=== PATIENT | male | born 1950 | race American Indian/Alaskan Native ===

== ENCOUNTER 2016-08-19 13:18 | Inpatient (IN) | payer MEDICARE ==
[2016-08-19 15:04] LABS: Basophils % (Auto) 0.5 % (0.0-1.8); Eosinophils % (Auto) 1.5 % (0.0-4.3); Hematocrit 30.4 % (35.5-45.6); Hemoglobin 10.2 gm/dl (11.8-15.2); Mean Corpuscular HGB Conc 34 % (32-34); Mean Corpuscular Hemoglobin 34 pg (28-32); Mean Corpuscular Volume 102 fl (84-94); Platelet Count 142 K/mm3 (140-440); Red Blood Count 2.99 M/mm3 (3.65-5.03); Red Cell Distribution Width 14.7 % (13.2-15.2); White Blood Count 5.4 K/mm3 (4.5-11.0)
[2016-08-19 15:11] LABS: Albumin 3.8 g/dL (3.9-5); Albumin/Globulin Ratio 1.6 %; BUN/Creatinine Ratio 11.42; Bilirubin,Total 0.4 mg/dL (0.1-1.2); Calcium 8.3 mg/dL (8.4-10.2); Magnesium 2.3 mg/dL (1.7-2.3); Total Protein 6.2 g/dL (6.3-8.2)
[2016-08-19 15:14] LABS: INR 0.9 (0.87-1.13); Partial Thromboplastin Time 28.6 Sec. (24.2-36.6)
[2016-08-19 15:15] LABS: Creatine Kinase MB 4.3 ng/mL (0.0-4.0)
[2016-08-19 15:16] LABS: Creatine Kinase 300 units/L (55-170)
[2016-08-19] MEDS ORDERED: NACL 0.9% 1000 ML 1,000 ML IV ONE (16:06)
--- NOTE | 2016-08-19 16:15 | Emergency Department Report ---
ED General Adult HPI - General Chief complaint: Weakness Stated complaint: WEAKNESS Time Seen by Provider: 08/19/16 14:40 Source: patient, EMS Mode of arrival: Stretcher Limitations: Other - History of Present Illness Initial comments: The nurse informed me that this patient arrives substantially lethargic. She entered and altered mental status protocol. At this time my encounter the patient is now awake and alert and can't provide the following history. The patient states that he was at his cousin's house and was sent to the hospital because he began shaking. He states that he was told that he was shaking but he was not conscious at that. He explains that he does have seizures when he cuts back on his alcohol consumption. He states that he recently has cut back. He also states that he had 2 seizures last . He is taking a medication for seizures but does not know the name. However his medical condition reconciliation less Keppra. He does not report any recent head trauma or falls. However, he is found to have an abrasion which does not appear to be fresh on his forehead. The patient does not complain of headache or pain. He denies any recent fever or chills. He denies nausea vomiting diarrhea or vomiting although he states he vomited once last week. He states he does have a nonproductive cough. He does not complain of dyspnea. -: Sudden, minutes(s) Severity scale (0 -10): 0 Improves with: none Worsens with: none Associated Symptoms: denies other symptoms, cough - Related Data Home Medications Medication Instructions Recorded Confirmed Last Taken Amlodipine Besylate [Norvasc] 5 mg PO DAILY 11/02/12 08/19/16 02/27/14 FLUoxetine HCL [PROzac] 60 mg PO QAM 11/02/12 08/19/16 02/27/14 Folic Acid 1 mg PO DAILY 11/02/12 08/19/16 02/27/14 Gabapentin 200 mg PO TID 11/02/12 08/19/16 02/27/14 levETIRAcetam [Keppra TAB] 1,000 mg PO BID 11/02/12 08/19/16 02/27/14 Allopurinol [Zyloprim] 300 mg PO QDAY 02/27/14 08/19/16 02/27/14 Cholecalciferol Vit D3 [Vitamin D3] 1,000 unit PO QDAY 02/27/14 08/19/16 Ipratropium/Albuterol Sulfate 1 ampul IH Q6HRT PRN 02/27/14 08/19/16 Unknown [Duoneb 0.5 mg-3 mg/3 ml Soln] Mirtazapine [Remeron] 15 mg PO DAILY 02/27/14 08/19/16 02/27/14 Thiamine HCl [B-1] 200 mg PO DAILY 02/27/14 08/19/16 02/27/14 Previous Rx's Medication Instructions Recorded Last Taken Type Atenolol [Tenormin] 50 mg PO DAILY #30 tablet 07/31/14 Unknown Rx Capsaicin 0.075% [Zostrix Hp 1 applicatio TP TID #1 tube 07/31/14 Unknown Rx 0.075%] Lipase/Protease/Amylase 1 each PO TID #90 capsule. 07/31/14 Unknown Rx [Pancrelipase 5,000 Unit Cap] Omeprazole [PriLOSEC] 40 mg PO DAILY #30 capsule. 07/31/14 Unknown Rx Nicotine [Habitrol] 14 mg TD DAILY #14 patch 08/24/15 Unknown Rx Ondansetron [Zofran Odt] 4 mg PO Q4H PRN #15 tab.rapdis 08/24/15 Unknown Rx oxyCODONE /ACETAMINOPHEN [Percocet 1 tab PO Q6H PRN #30 tablet 08/24/15 Unknown Rx 5/325 mg] Allergies Allergy/AdvReac Type Severity Reaction Status Date / Time shellfish derived Allergy Swelling Verified 08/21/15 22:08 lobster Allergy lips swell Uncoded 08/21/13 14:24 ED Review of Systems ROS: Stated complaint: WEAKNESS Other details as noted in HPI Constitutional: denies: chills, fever Eyes: denies: eye pain, eye discharge, vision change ENT: denies: ear pain, throat pain Respiratory: denies: cough, shortness of breath, wheezing Cardiovascular: denies: chest pain, palpitations Endocrine: no symptoms reported Gastrointestinal: denies: abdominal pain, nausea, diarrhea Genitourinary: denies: urgency, dysuria Musculoskeletal: denies: back pain, joint swelling, arthralgia Skin: denies: rash, lesions Neurological: as per HPI. denies: headache, weakness, paresthesias Psychiatric: denies: anxiety, depression Hematological/Lymphatic: denies: easy bleeding, easy bruising ED Past Medical Hx - Past Medical History Previous Medical History?: Yes Hx Hypertension: Yes Hx Congestive Heart Failure: No Hx Diabetes: No Hx Arthritis: Yes Hx Seizures: Yes Hx Asthma: No Hx COPD: Yes Additional medical history: gout. pancreatitis. DDD - Surgical History Past Surgical History?: Yes Additional Surgical History: Pancreatitis. Acute renal failure. - Social History Smoking Status: Current Every Day Smoker Substance Use Type: Prescribed - Medications Home Medications: Home Medications Medication Instructions Recorded Confirmed Last Taken Type Amlodipine Besylate [Norvasc] 5 mg PO DAILY 11/02/12 08/19/16 02/27/14 History FLUoxetine HCL [PROzac] 60 mg PO QAM 11/02/12 08/19/16 02/27/14 History Folic Acid 1 mg PO DAILY 11/02/12 08/19/16 02/27/14 History Gabapentin 200 mg PO TID 11/02/12 08/19/16 02/27/14 History levETIRAcetam [Keppra TAB] 1,000 mg PO BID 11/02/12 08/19/16 02/27/14 History Allopurinol [Zyloprim] 300 mg PO QDAY 02/27/14 08/19/16 02/27/14 History Cholecalciferol Vit D3 [Vitamin D3] 1,000 unit PO QDAY 02/27/14 08/19/16 History Ipratropium/Albuterol Sulfate 1 ampul IH Q6HRT PRN 02/27/14 08/19/16 Unknown History [Duoneb 0.5 mg-3 mg/3 ml Soln] Mirtazapine [Remeron] 15 mg PO DAILY 02/27/14 08/19/16 02/27/14 History Thiamine HCl [B-1] 200 mg PO DAILY 02/27/14 08/19/16 02/27/14 History Atenolol [Tenormin] 50 mg PO DAILY #30 tablet 07/31/14 08/19/16 Unknown Rx Capsaicin 0.075% [Zostrix Hp 1 applicatio TP TID #1 tube 07/31/14 08/19/16 Unknown Rx 0.075%] Lipase/Protease/Amylase 1 each PO TID #90 capsule. 07/31/14 08/19/16 Unknown Rx [Pancrelipase 5,000 Unit Cap] Omeprazole [PriLOSEC] 40 mg PO DAILY #30 capsule. 07/31/14 08/19/16 Unknown Rx Nicotine [Habitrol] 14 mg TD DAILY #14 patch 08/24/15 08/19/16 Unknown Rx Ondansetron [Zofran Odt] 4 mg PO Q4H PRN #15 tab.rapdis 08/24/15 08/19/16 Unknown Rx oxyCODONE /ACETAMINOPHEN [Percocet 1 tab PO Q6H PRN #30 tablet 08/24/15 Unknown Rx 5/325 mg] ED Physical Exam - General Limitations: No Limitations General appearance: alert, in no apparent distress - Head Head exam: Present: atraumatic, normocephalic - Eye Eye exam: Present: normal appearance, PERRL, EOMI. Absent: scleral icterus - ENT ENT exam: Present: normal exam, mucous membranes moist - Neck Neck exam: Present: normal inspection - Respiratory Respiratory exam: Present: rhonchi. Absent: respiratory distress - Cardiovascular Cardiovascular Exam: Present: regular rate, normal rhythm. Absent: systolic murmur, diastolic murmur, rubs, gallop - GI/Abdominal GI/Abdominal exam: Present: soft, normal bowel sounds. Absent: distended, tenderness, guarding, rebound, rigid - Rectal Rectal exam: Present: deferred - Extremities Exam Extremities exam: Present: normal inspection - Back Exam Back exam: Present: normal inspection - Neurological Exam Neurological exam: Present: alert, oriented X3, CN II-XII intact. Absent: motor sensory deficit - Psychiatric Psychiatric exam: Present: normal affect, normal mood - Skin Skin exam: Present: warm, dry, intact, normal color. Absent: rash ED Course Vital Signs 08/19/16 08/19/16 14:14 15:56 Temperature 97.7 F Pulse Rate 60 62 Respiratory 12 16 Rate Blood Pressure 109/58 Blood Pressure 101/56 [Right] O2 Sat by Pulse 99 98 Oximetry - Reevaluation(s) Reevaluation #1: The patient is hyponatremic. He has a history of previous renal failure. However one year ago his creatinine was normal. Today it is 2.2. His BUN to creatinine ratio is somewhat low. He was given a bolus of normal saline. He was given a gram of Keppra. He will have a CT of his head to exclude any occult injury. He is admitted by Dr. De La Fuente of the hospitalist service for his hyponatremia, recurrent seizures and renal failure of uncertain duration. 08/19/16 17:29 ED Medical Decision Making - Lab Data Result diagrams: 08/19/16 14:31 08/19/16 14:31 Laboratory Results - last 24 hr 08/19/16 08/19/16 08/19/16 14:31 14:31 14:31 WBC 5.4 RBC 2.99 L Hgb 10.2 L Hct 30.4 L MCV 102 H MCH 34 H MCHC 34 RDW 14.7 Plt Count 142 Lymph % (Auto) 37.8 H [place] % (Auto) 11.4 H Eos % (Auto) 1.5 Baso % (Auto) 0.5 Lymph # 2.0 Freestone # 0.6 Eos # 0.1 Baso # 0.0 Seg Neutrophils % 48.8 Seg Neutrophils # 2.6 PT INR APTT Sodium 127 L Potassium 4.0 Chloride 89.0 L Carbon Dioxide 22 Anion Gap 20 BUN 32 H Creatinine 2.8 H Estimated GFR 27 BUN/Creatinine Ratio 11.42 Glucose 93 Lactic Acid 1.20 Calcium 8.3 L Magnesium 2.30 Total Bilirubin 0.40 AST 20 ALT 14 Alkaline Phosphatase 88 Total Creatine Kinase CK-MB (CK-2) CK-MB (CK-2) Rel Index Troponin T NT-Pro-B Natriuret Pep Total Protein 6.2 L Albumin 3.8 L Albumin/Globulin Ratio 1.6 TSH Urine Color Urine Turbidity Urine pH Ur Specific [place] Urine Protein Urine Glucose (UA) Urine Ketones Urine Blood Urine Nitrite Urine Bilirubin Urine Urobilinogen Ur Leukocyte Esterase Urine WBC (Auto) Urine RBC (Auto) Urine Bacteria (Auto) Salicylates Urine Opiates Screen Urine Methadone Screen Acetaminophen Ur Barbiturates Screen Ur Phencyclidine Scrn Ur Amphetamines Screen U Benzodiazepines Scrn Urine Cocaine Screen Plasma/Serum Alcohol 08/19/16 08/19/16 08/19/16 14:31 14:31 14:31 WBC RBC Hgb Hct MCV MCH MCHC RDW Plt Count Lymph % (Auto) Freestone % (Auto) Eos % (Auto) Baso % (Auto) Lymph # Fre[place] # Eos # Baso # Seg Neutrophils % Seg Neutrophils # PT INR APTT Sodium Potassium Chloride Carbon Dioxide Anion Gap BUN Creatinine Estimated GFR BUN/Creatinine Ratio Glucose Lactic Acid Calcium Magnesium Total Bilirubin AST ALT Alkaline Phosphatase Total Creatine Kinase CK-MB (CK-2) CK-MB (CK-2) Rel Index Troponin T NT-Pro-B Natriuret Pep Total Protein Albumin Albumin/Globulin Ratio TSH 0.626 Urine Color Urine Turbidity Urine pH Ur Specific [place] Urine Protein Urine Glucose (UA) Urine Ketones Urine Blood Urine Nitrite Urine Bilirubin Urine Urobilinogen Ur Leukocyte Esterase Urine WBC (Auto) Urine RBC (Auto) Urine Bacteria (Auto) Salicylates < 0.3 L Urine Opiates Screen Urine Methadone Screen Acetaminophen < 15.0 Ur Barbiturates Screen Ur Phencyclidine Scrn Ur Amphetamines Screen U Benzodiazepines Scrn Urine Cocaine Screen Plasma/Serum Alcohol 08/19/16 08/19/16 08/19/16 14:31 14:31 14:52 WBC RBC Hgb Hct MCV MCH MCHC RDW Plt Count Lymph % (Auto) [place] % (Auto) Eos % (Auto) Baso % (Auto) Lymph # [place] # Eos # Baso # Seg Neutrophils % Seg Neutrophils # PT 12.6 INR 0.90 APTT 28.6 Sodium Potassium Chloride Carbon Dioxide Anion Gap BUN Creatinine Estimated GFR BUN/Creatinine Ratio Glucose Lactic Acid Calcium Magnesium Total Bilirubin AST ALT Alkaline Phosphatase Total Creatine Kinase 300 H CK-MB (CK-2) 4.3 H CK-MB (CK-2) Rel Index 1.4 Troponin T < 0.010 NT-Pro-B Natriuret Pep 89.14 Total Protein Albumin Albumin/Globulin Ratio TSH Urine Color Urine Turbidity Urine pH Ur Specific [place] Urine Protein Urine Glucose (UA) Urine Ketones Urine Blood Urine Nitrite Urine Bilirubin Urine Urobilinogen Ur Leukocyte Esterase Urine WBC (Auto) Urine RBC (Auto) Urine Bacteria (Auto) Salicylates Urine Opiates Screen Urine Methadone Screen Acetaminophen Ur Barbiturates Screen Ur Phencyclidine Scrn Ur Amphetamines Screen U Benzodiazepines Scrn Urine Cocaine Screen Plasma/Serum Alcohol < 0.01 08/19/16 08/19/16 Unknown Unknown WBC RBC Hgb Hct MCV MCH MCHC RDW Plt Count Lymph % (Auto) [place] % (Auto) Eos % (Auto) Baso % (Auto) Lymph # [place] # Eos # Baso # Seg Neutrophils % Seg Neutrophils # PT INR APTT Sodium Potassium Chloride Carbon Dioxide Anion Gap BUN Creatinine Estimated GFR BUN/Creatinine Ratio Glucose Lactic Acid Calcium Magnesium Total Bilirubin AST ALT Alkaline Phosphatase Total Creatine Kinase CK-MB (CK-2) CK-MB (CK-2) Rel Index Troponin T NT-Pro-B Natriuret Pep Total Protein Albumin Albumin/Globulin Ratio TSH Urine Color Red Urine Turbidity Clear Urine pH 5.0 Ur Specific [place] 1.006 Urine Protein 30 mg/dl Urine Glucose (UA) Neg Urine Ketones Neg Urine Blood Lg Urine Nitrite Neg Urine Bilirubin Neg Urine Urobilinogen < 2.0 Ur Leukocyte Esterase Neg Urine WBC (Auto) 2.0 Urine RBC (Auto) > 182.0 Urine Bacteria (Auto) 3+ Salicylates Urine Opiates Screen Presumptive negative Urine Methadone Screen Presumptive negative Acetaminophen Ur Barbiturates Screen Presumptive negative Ur Phencyclidine Scrn Presumptive negative Ur Amphetamines Screen Presumptive negative U Benzodiazepines Scrn Presumptive negative Urine Cocaine Screen Presumptive negative Plasma/Serum Alcohol - EKG Data -: EKG Interpreted by Me EKG shows normal: sinus rhythm, axis, intervals, QRS complexes, ST-T waves Rate: tachycardia - EKG Data Interpretation: no acute changes - Radiology Data interpreted by me: Chest x-ray no acute process Critical care attestation.: If time is entered above; I have spent that time in minutes in the direct care of this critically ill patient, excluding procedure time. ED Disposition Clinical Impression: Recurrent seizures, Seizure disorder, Renal insufficiency, Hyponatremia Disposition: OP ADMIT IP TO THIS HOSP Is pt being admited?: Yes Does the pt Need Aspirin: Yes Condition: Stable Referrals: PRIMARY CARE, [Primary Care Provider] - 3-5 Days Time of Disposition: 17:32
--- NOTE | 2016-08-19 16:37 | XRay Report ---
CHEST ONE VIEW INDICATION: Saturation level dipping down. COMPARISON: 01/11/2016. FINDINGS: Portable, single, frontal chest radiograph demonstrates normal cardiomediastinal silhouette. Clear lungs. Mild aortic knob calcifications. Multilevel thoracic spondylosis. Extrinsic EKG leads. CONCLUSION: No acute disease in the chest. Thank you for the opportunity to participate in this patient's care.
--- NOTE | 2016-08-19 16:42 | Admit Criteria Form ---
Admission Criteria Documentation: SEIZURE Clinical Indications for Admission to Inpatient Care (Place 'X' for any and all applicable criteria): Admission is indicated for seizure and ANY ONE of the following(1)(2)(3)(4)(5): [X ]I. Inpatient admission required rather than observation care (Also use Seizure: Observation Care Criteria as appropriate) because of ANY ONE of the following: [ ]a) Altered mental status that is severe or persistent [ ]b) New focal neurologic deficit that is severe or persistent [ X]c) Metabolic disorder (eg, hypoglycemia, hyponatremia) that is severe or persistent [X ]d) Recurrent seizure [ ]e) Outpatient antiseizure regimen cannot be established (eg , patient cannot tolerate medication, initiation requires inpatient care) [ ]f) Need for ongoing intravenous infusion of antiseizure medication [ ]g) Cardiac arrhythmias of immediate concern [ ]h) Cerebral bleeding, hydrocephalus, or vasospasm monitoring (14) [ ]i) Increased intracranial pressure or cerebral edema monitoring (15) [ ]j) Other treatment or monitoring requiring inpatient admission [ ]II. Status epilepticus [A] or repetitive seizures not controlled with emergent treatment (6)(8) [ ]III. Brain disorder (eg, tumor, edema, and hydrocephalus) that requiring monitoring or intervention available only at inpatient level of care. [ ]IV. Brain insult (eg, severe trauma, stroke, drug toxicity, or withdrawal) that requires monitoring or intervention available only at inpatient level of care (10)(11) Extended stay beyond goal length of stay may be needed for (22) [ ]a) Complications of status epilepticus [ ]b) Refractory status epilepticus [ ]c) Etiology-specific therapy for conditions such as [employer] infection, head injury,eclampsia, severe metabolic abnormalities, and brain tumor [ ]d) Residual neurologic damage, [ ]e) Initiation of significant change to anticonvulsant treatment [ ]f) Older patients (65 years or older) [ ]g) Patient requiring intubation (eg, to protect airway) The original [facility] [employer] content created by [facility] [employer] has been revised. The portions of the content which have been revised are identified through the use of italic text or in bold, and [facility] [employer] has neither reviewed nor approved the modified material. All other unmodified content is copyright [facility] [employer] Erwin. Please see references footnoted in the original [facility] edition 2016 Admission Criteria Met: Yes
[2016-08-19 17:01] LABS: Urine Drugs of Abuse Note Disclamer
[2016-08-19] MEDS ORDERED: KEPPRA 1,000 MG/NS 0.75% 100ML 1,000 MG/100 ML BAG IV ONE (17:01)
[2016-08-19] MEDS ORDERED: ATIVAN PO ONE (17:01)
[2016-08-19 17:16] LABS: Bacteria,Urine 3+ /HPF (Negative); Bilirubin,Urine NEG (Negative); Blood,Urine LG (Negative); Ketones,Urine NEG (Negative); Leukocyte Esterase,Urine NEG (Negative); Nitrite,Urine NEG (Negative); Urobilinogen,Urine < 2.0 mg/dL (<2.0)
[2016-08-19 17:18] LABS: RBC,Urine > 182.0 /HPF (0.0-6.0)
[2016-08-19] MEDS ORDERED: BABY ASPIRIN PO ONE (17:32)
--- NOTE | 2016-08-19 17:45 | Cat Scan Report ---
FINAL REPORT EXAM: CT HEAD/BRAIN WO CON HISTORY: recurrent sz TECHNIQUE: CT head without contrast PRIORS: None. FINDINGS: No acute intra-axial or extra-axial hemorrhage is identified. There is no evidence of midline shift or mass effect. The ventricles and sulci are within normal limits. Andres-white matter differentiation is intact. No acute parenchymal abnormalities seen. Bony calvarium is grossly intact. Visualized portions of the mastoids and paranasal sinuses are unremarkable. IMPRESSION: Negative CT head
--- NOTE | 2016-08-19 18:10 | History and Physical Report ---
History of Present Illness Chief complaint: Confused, Had a seizure History of present illness: 66 YO Male with HTN, COPD, OA, Seizure Disorder, Pancreatitis, ETOH Dependence, Nicotine Dependence presents to ED for evaluation. Pt states that he had a witnessed seizure at his cousins house today and was sent to the hospital after his seizure. PT states that he does have seizures when he cuts back on his alcohol consumption. He states that he recently has cut back. He also states that he had 2 seizures last week. He is taking a medication for seizures but does not know the name. Patient denies NVD, headache or pain, fever, or chills. He denies nausea vomiting diarrhea or vomiting although he states he vomited once last week. He states he does have a nonproductive cough. He does not complain of dyspnea. Past History Past Medical History: arthritis, COPD, hypertension, seizures Past Surgical History: No surgical history, Other (reviewed) Social history: , smoking, alcohol abuse. denies: prescription drug abuse, IV drug use Family history: hypertension Medications and Allergies Allergies Allergy/AdvReac Type Severity Reaction Status Date / Time shellfish derived Allergy Swelling Verified 08/21/15 22:08 lobster Allergy lips swell Uncoded 08/21/13 14:24 Home Medications Medication Instructions Recorded Confirmed Last Taken Type Amlodipine Besylate [Norvasc] 5 mg PO DAILY 11/02/12 08/19/16 02/27/14 History FLUoxetine HCL [PROzac] 60 mg PO QAM 11/02/12 08/19/16 02/27/14 History Folic Acid 1 mg PO DAILY 11/02/12 08/19/16 02/27/14 History Gabapentin 200 mg PO TID 11/02/12 08/19/16 02/27/14 History levETIRAcetam [Keppra TAB] 1,000 mg PO BID 11/02/12 08/19/16 02/27/14 History Allopurinol [Zyloprim] 300 mg PO QDAY 02/27/14 08/19/16 02/27/14 History Cholecalciferol Vit D3 [Vitamin D3] 1,000 unit PO QDAY 02/27/14 08/19/16 History Ipratropium/Albuterol Sulfate 1 ampul IH Q6HRT PRN 02/27/14 08/19/16 Unknown History [Duoneb 0.5 mg-3 mg/3 ml Soln] Mirtazapine [Remeron] 15 mg PO DAILY 02/27/14 08/19/16 02/27/14 History Thiamine HCl [B-1] 200 mg PO DAILY 02/27/14 08/19/16 02/27/14 History Atenolol [Tenormin] 50 mg PO DAILY #30 tablet 07/31/14 08/19/16 Unknown Rx Capsaicin 0.075% [Zostrix Hp 1 applicatio TP TID #1 tube 07/31/14 08/19/16 Unknown Rx 0.075%] Lipase/Protease/Amylase 1 each PO TID #90 capsule. 07/31/14 08/19/16 Unknown Rx [Pancrelipase 5,000 Unit Cap] Omeprazole [PriLOSEC] 40 mg PO DAILY #30 capsule. 07/31/14 08/19/16 Unknown Rx Nicotine [Habitrol] 14 mg TD DAILY #14 patch 08/24/15 08/19/16 Unknown Rx Ondansetron [Zofran Odt] 4 mg PO Q4H PRN #15 tab.rapdis 08/24/15 08/19/16 Unknown Rx oxyCODONE /ACETAMINOPHEN [Percocet 1 tab PO Q6H PRN #30 tablet 08/24/15 Unknown Rx 5/325 mg] Review of Systems All systems: negative Constitutional: other (seizure) Exam - Constitutional Vitals: Temp Pulse Resp BP Pulse Ox 97.7 F 62 16 101/56 98 08/19/16 14:14 08/19/16 15:56 08/19/16 15:56 08/19/16 15:56 08/19/16 15:56 General appearance: Present: mild distress - EENT Eyes: Present: PERRL ENT: hearing intact, clear oral mucosa - Neck Neck: Present: supple, normal ROM - Respiratory Respiratory effort: normal Respiratory: bilateral: diminished - Cardiovascular Heart Sounds: Present: S1 & S2. Absent: rub, click - Extremities Extremities: pulses symmetrical, No edema Peripheral Pulses: within normal limits - Abdominal General gastrointestinal: Present: soft, non-tender, non-distended, normal bowel sounds Male genitourinary: Present: normal - Integumentary Integumentary: Present: clear, dry, clammy, decreased turgor - Musculoskeletal Musculoskeletal: generalized weakness - Psychiatric Psychiatric: appropriate mood/affect, no intact judgment & insight, no memory intact - Neurologic Neurologic: CNII-XII intact, moves all extremities, no gait normal Results - Labs CBC & Chem 7: 08/19/16 14:31 08/19/16 14:31 Labs: Abnormal lab results 08/19/16 08/19/16 08/19/16 Range/Units 14:31 14:31 14:31 RBC 2.99 L (3.65-5.03) M/mm3 Hgb 10.2 L (11.8-15.2) gm/dl Hct 30.4 L (35.5-45.6) % MCV 102 H (84-94) fl MCH 34 H (28-32) pg Lymph % (Auto) 37.8 H (13.4-35.0) % Centre % (Auto) 11.4 H (0.0-7.3) % Sodium 127 L (137-145) mmol/L Chloride 89.0 L (98-107) mmol/L BUN 32 H (9-20) mg/dL Creatinine 2.8 H (0.8-1.5) mg/dL Calcium 8.3 L (8.4-10.2) mg/dL Total Creatine Kinase (55-170) units/L CK-MB (CK-2) (0.0-4.0) ng/mL Total Protein 6.2 L (6.3-8.2) g/dL Albumin 3.8 L (3.9-5) g/dL Salicylates < 0.3 L (2.8-20.0) mg/dL 08/19/16 Range/Units 14:31 RBC (3.65-5.03) M/mm3 Hgb (11.8-15.2) gm/dl Hct (35.5-45.6) % MCV (84-94) fl MCH (28-32) pg Lymph % (Auto) (13.4-35.0) % Centre % (Auto) (0.0-7.3) % Sodium (137-145) mmol/L Chloride (98-107) mmol/L BUN (9-20) mg/dL Creatinine (0.8-1.5) mg/dL Calcium (8.4-10.2) mg/dL Total Creatine Kinase 300 H (55-170) units/L CK-MB (CK-2) 4.3 H (0.0-4.0) ng/mL Total Protein (6.3-8.2) g/dL Albumin (3.9-5) g/dL Salicylates (2.8-20.0) mg/dL Assessment and Plan - Patient Problems (1) Alcohol withdrawal Current Visit: Yes Status: Acute Qualifiers: Complication of substance-induced condition: C Plan to address problem: CIWA protocol, Thiamine, folic acid, multivitamin daily (2) Encephalopathy acute Current Visit: Yes Status: Acute Plan to address problem: Supportive care, IVF replacement, treat ETOH withdrawl (3) Seizure disorder Current Visit: Yes Status: Acute Plan to address problem: Keppra loading in ED, Keppra bid (4) Hyponatremia syndrome Current Visit: Yes Status: Acute Plan to address problem: IVR replacement, repeat bmp (5) ARF (acute renal failure) Current Visit: Yes Status: Acute Qualifiers: Acute renal failure type: A Plan to address problem: IVF< monitor uop q shift, supportive care. (6) DVT prophylaxis Current Visit: Yes Status: Acute
[2016-08-19] MEDS ORDERED: TYLENOL PO PRN (18:14)
[2016-08-19] MEDS ORDERED: DUONEB *Not for PRN Use IH ×2 (18:14→18:18)
[2016-08-19] MEDS ORDERED: DULCOLAX PR PRN (18:14)
[2016-08-19] MEDS ORDERED: MILK OF MAGNESIA PO PRN (18:14)
[2016-08-19] MEDS ORDERED: ZOFRAN IV PRN (18:14)
[2016-08-19] MEDS ORDERED: ATIVAN IV PRN (18:20)
[2016-08-19] MEDS ORDERED: PROVENTIL IH PRN (18:26)
[2016-08-19] MEDS: ZOSTRIX HP TP SCH (23:00)
[2016-08-19] MEDS: NEURONTIN PO SCH (23:08)
[2016-08-19] MEDS: KEPPRA PO SCH (23:08)
[2016-08-20] MEDS: THERAGRAN Tab PO SCH ×2 (01:00→09:35)
[2016-08-20] MEDS: VITAMIN B-1 PO SCH ×2 (01:00→09:33)
[2016-08-20] MEDS: ZOSTRIX HP TP SCH ×3 (08:00→21:29)
[2016-08-20 09:32] LABS: Anion Gap 18 mmol/L; BUN/Creatinine Ratio 18.18; Blood Urea Nitrogen 20 mg/dL (9-20); Calcium 8.8 mg/dL (8.4-10.2); Carbon Dioxide 22 mmol/L (22-30); Chloride 102.5 mmol/L (98-107); Glucose 90 mg/dL (75-100); Potassium 4.8 mmol/L (3.6-5.0); Sodium 138 mmol/L (137-145)
[2016-08-20] MEDS: VITAMIN D3 PO SCH (09:33)
[2016-08-20] MEDS: ZYLOPRIM PO SCH (09:34)
[2016-08-20] MEDS: FOLVITE PO SCH (09:34)
[2016-08-20] MEDS: NEURONTIN PO SCH ×3 (09:34→21:23)
[2016-08-20] MEDS: KEPPRA PO SCH ×2 (09:34→21:23)
[2016-08-20] MEDS: TENORMIN PO SCH (09:34)
[2016-08-20] MEDS: NORVASC PO SCH (09:35)
[2016-08-20] MEDS: PROzac PO SCH (09:35)
[2016-08-20] MEDS ORDERED: NON-FORMULARY (Folic Acid [Folic Acid] 1 MG) PO SCH (10:00)
[2016-08-20] MEDS ORDERED: FLUOXETINE HCL 60 MG PO SCH (10:00)
[2016-08-20] MEDS ORDERED: NON-FORMULARY (Amlodipine Besylate [Norvasc] 5 MG) PO SCH (10:00)
--- NOTE | 2016-08-20 12:34 | Progress Note ---
Assessment and Plan Assessment and plan: --seizures/possible alcohol withdrawal Seizure precautions, continue antiepileptic medications, or difficulty --Metabolic encephalopathy Secondary to alcohol use/withdrawal symptoms/deficiencies --Hyponatremia Significant improvement on replacement therapy, closely monitor --Acute renal failure; secondary to vasomotor nephropathy/prerenal azotemia Closely monitor renal function, avoid nephrotoxic medications --DVT prophylaxis; with Lovenox --Chronic alcohol use; counseling done patient strongly advised to quit alcohol intake --Alcohol withdrawal symptoms; initiate CIWA protocol DC planning to case management We'll closely monitor the patient and adjust management as needed History Interval history: Seen and evaluated medical records reviewed Patient feels Slightly better No new Episodes of seizure, alert awake oriented 3 not in acute distress Vital signs reviewed Hospitalist Physical - Constitutional Vitals: Temp Pulse Resp BP Pulse Ox 97.5 F L 68 20 116/70 98 08/20/16 11:22 08/20/16 11:22 08/20/16 11:22 08/20/16 11:22 08/20/16 08:18 General appearance: Present: no acute distress, well-nourished - EENT Eyes: Present: PERRL, EOM intact - Neck Neck: Present: supple, normal ROM - Respiratory Respiratory effort: normal Respiratory: bilateral: diminished, negative: rales, rhonchi, wheezing - Cardiovascular Rhythm: regular Heart Sounds: Present: S1 & S2 - Extremities Extremities: no ischemia, pulses intact Peripheral Pulses: within normal limits - Abdominal General gastrointestinal: soft, non-tender, non-distended, normal bowel sounds - Integumentary Integumentary: Present: clear, warm - Psychiatric Psychiatric: appropriate mood/affect, cooperative - Neurologic Neurologic: CNII-XII intact, moves all extremities Results - Labs CBC & Chem 7: 08/19/16 14:31 08/20/16 08:45 Labs: Laboratory Last Values WBC 5.4 K/mm3 (4.5-11.0) 08/19/16 14:31 RBC 2.99 M/mm3 (3.65-5.03) L 08/19/16 14:31 Hgb 10.2 gm/dl (11.8-15.2) L 08/19/16 14:31 Hct 30.4 % (35.5-45.6) L 08/19/16 14:31 MCV 102 fl (84-94) H 08/19/16 14:31 MCH 34 pg (28-32) H 08/19/16 14:31 MCHC 34 % (32-34) 08/19/16 14:31 RDW 14.7 % (13.2-15.2) 08/19/16 14:31 Plt Count 142 K/mm3 (140-440) 08/19/16 14:31 Lymph % (Auto) 37.8 % (13.4-35.0) H 08/19/16 14:31 [place] % (Auto) 11.4 % (0.0-7.3) H 08/19/16 14:31 Eos % (Auto) 1.5 % (0.0-4.3) 08/19/16 14:31 Baso % (Auto) 0.5 % (0.0-1.8) 08/19/16 14:31 Lymph # 2.0 K/mm3 (1.2-5.4) 08/19/16 14:31 [place] # 0.6 K/mm3 (0.0-0.8) 08/19/16 14:31 Eos # 0.1 K/mm3 (0.0-0.4) 08/19/16 14:31 Baso # 0.0 K/mm3 (0.0-0.1) 08/19/16 14:31 Seg Neutrophils % 48.8 % (40.0-70.0) 08/19/16 14:31 Seg Neutrophils # 2.6 K/mm3 (1.8-7.7) 08/19/16 14:31 PT 12.6 Sec. (12.2-14.9) 08/19/16 14:52 INR 0.90 (0.87-1.13) 08/19/16 14:52 APTT 28.6 Sec. (24.2-36.6) 08/19/16 14:52 Sodium 138 mmol/L (137-145) D 08/20/16 08:45 Potassium 4.8 mmol/L (3.6-5.0) 08/20/16 08:45 Chloride 102.5 mmol/L (98-107) 08/20/16 08:45 Carbon Dioxide 22 mmol/L (22-30) 08/20/16 08:45 Anion Gap 18 mmol/L 08/20/16 08:45 BUN 20 mg/dL (9-20) 08/20/16 08:45 Creatinine 1.1 mg/dL (0.8-1.5) D 08/20/16 08:45 Estimated GFR > 60 ml/min 08/20/16 08:45 BUN/Creatinine Ratio 18.18 % 08/20/16 08:45 Glucose 90 mg/dL (75-100) 08/20/16 08:45 Lactic Acid 0.90 mmol/L (0.7-2.0) 08/19/16 17:32 Calcium 8.8 mg/dL (8.4-10.2) 08/20/16 08:45 Magnesium 2.40 mg/dL (1.7-2.3) H 08/20/16 08:45 Total Bilirubin 0.40 mg/dL (0.1-1.2) 08/19/16 14:31 AST 20 units/L (5-40) 08/19/16 14:31 ALT 14 units/L (7-56) 08/19/16 14:31 Alkaline Phosphatase 88 units/L (35-129) 08/19/16 14:31 Total Creatine Kinase 300 units/L (55-170) H 08/19/16 14:31 CK-MB (CK-2) 4.3 ng/mL (0.0-4.0) H 08/19/16 14:31 CK-MB (CK-2) Rel Index 1.4 (0-4) 08/19/16 14:31 Troponin T < 0.010 ng/mL (0.00-0.029) 08/19/16 14:31 NT-Pro-B Natriuret Pep 89.14 pg/mL (0-900) 08/19/16 14:31 Total Protein 6.2 g/dL (6.3-8.2) L 08/19/16 14:31 Albumin 3.8 g/dL (3.9-5) L 08/19/16 14:31 Albumin/Globulin Ratio 1.6 % 08/19/16 14:31 TSH 0.626 mlU/mL (0.270-4.200) 08/19/16 14:31 Urine Color Red (Yellow) 08/19/16 Unknown Urine Turbidity Clear (Clear) 08/19/16 Unknown Urine pH 5.0 (5.0-7.0) 08/19/16 Unknown Ur Specific [place] 1.006 (1.003-1.030) 08/19/16 Unknown Urine Protein 30 mg/dl mg/dL (Negative) 08/19/16 Unknown Urine Glucose (UA) Neg mg/dL (Negative) 08/19/16 Unknown Urine Ketones Neg mg/dL (Negative) 08/19/16 Unknown Urine Blood Lg (Negative) 08/19/16 Unknown Urine Nitrite Neg (Negative) 08/19/16 Unknown Urine Bilirubin Neg (Negative) 08/19/16 Unknown Urine Urobilinogen < 2.0 mg/dL (<2.0) 08/19/16 Unknown Ur Leukocyte Esterase Neg (Negative) 08/19/16 Unknown Urine WBC (Auto) 2.0 /HPF (0.0-6.0) 08/19/16 Unknown Urine RBC (Auto) > 182.0 /HPF (0.0-6.0) 08/19/16 Unknown Urine Bacteria (Auto) 3+ /HPF (Negative) 08/19/16 Unknown Salicylates < 0.3 mg/dL (2.8-20.0) L 08/19/16 14:31 Urine Opiates Screen Presumptive negative 08/19/16 Unknown Urine Methadone Screen Presumptive negative 08/19/16 Unknown Acetaminophen < 15.0 ug/mL (10.0-30.0) 08/19/16 14:31 Ur Barbiturates Screen Presumptive negative 08/19/16 Unknown Ur Phencyclidine Scrn Presumptive negative 08/19/16 Unknown Ur Amphetamines Screen Presumptive negative 08/19/16 Unknown U Benzodiazepines Scrn Presumptive negative 08/19/16 Unknown Urine Cocaine Screen Presumptive negative 08/19/16 Unknown U Marijuana (THC) Screen Presumptive positive 08/19/16 Unknown Drugs of Abuse Note Disclamer 08/19/16 Unknown Plasma/Serum Alcohol < 0.01 gm% (0-0.07) 08/19/16 14:31
[2016-08-21 07:23] LABS: Anion Gap 15 mmol/L; BUN/Creatinine Ratio 18.88; Blood Urea Nitrogen 17 mg/dL (9-20); Calcium 8.9 mg/dL (8.4-10.2); Carbon Dioxide 28 mmol/L (22-30); Chloride 102.4 mmol/L (98-107); Glucose 111 mg/dL (75-100); Potassium 4.9 mmol/L (3.6-5.0); Sodium 140 mmol/L (137-145)
[2016-08-21] MEDS: NEURONTIN PO SCH (08:48)
[2016-08-21] MEDS: ZOSTRIX HP TP SCH (08:48)
[2016-08-21] MEDS: TENORMIN PO SCH (09:09)
[2016-08-21] MEDS: THERAGRAN Tab PO SCH (09:09)
[2016-08-21] MEDS: FOLVITE PO SCH (09:10)
[2016-08-21] MEDS: KEPPRA PO SCH (09:10)
[2016-08-21] MEDS: VITAMIN D3 PO SCH (09:10)
[2016-08-21] MEDS: ZYLOPRIM PO SCH (09:10)
[2016-08-21] MEDS: PROzac PO SCH (09:10)
[2016-08-21] MEDS: VITAMIN B-1 PO SCH (09:10)
[2016-08-21] MEDS: NORVASC PO SCH (09:10)
--- NOTE | 2016-08-21 10:57 | Discharge Summary ---
Providers - Providers Date of Admission: 08/19/16 18:14 Date of discharge: 08/21/16 Attending physician: RAYSA BRANNON Primary care physician: IFRAH YAÑEZ Hospitalization Reason for admission: metabolic encephalopathy/seizure episode Condition: Stable Pertinent studies: Chest x-ray; normal study CT head without contrast; no acute intracranial abnormality noted Hospital course: 66-year-old male patient with significant past medical history of hypertension COPD osteoarthritis seizure disorder and alcohol abuse was admitted through the emergency room to the altered level of consciousness confusion and a seizure episode probably secondary to alcohol seizures Patient was initially evaluated admitted to the hospital symptomatically managed , placed on CIWA protocol, and seizure precautions Patient's symptoms significantly improved, he should also had hyponatremia with sodium of 127 which was similar corrected to normal levels with the symptomatic management Today he is comfortable in bed no alcohol withdrawal symptoms of tremulousness or seizures Alert awake oriented 3 not in acute distress, ambulatory and tolerating oral nutrition Counseling done strongly advised to quit alcohol intake, go to alcohol rehabilitation and attained AAA support group Advised not to drive or operate heavy machinery until cleared by primary care physician in view of seizures as well as alcohol abuse. Patient verbalized understanding Patient is hemodynamically and clinically stable at the time of discharge Disposition: [id number] HOME UNDER HOME [facility] Time spent for discharge: 32 min Core Measure Documentation - Palliative Care Palliative Care/ Comfort Measures: Not Applicable - Core Measures Any of the following diagnoses?: none Exam - Constitutional Vitals: Temp Pulse Resp BP Pulse Ox 97.8 F 61 18 160/73 98 08/21/16 08:00 08/21/16 08:00 08/21/16 08:00 08/21/16 08:00 08/21/16 08:00 General appearance: Present: no acute distress, well-nourished - EENT Eyes: Present: PERRL, EOM intact - Neck Neck: Present: supple, normal ROM - Respiratory Respiratory effort: normal Respiratory: negative: rales, rhonchi, wheezing - Cardiovascular Rhythm: regular Heart Sounds: Present: S1 & S2 - Extremities Extremities: no ischemia, No edema - Abdominal General gastrointestinal: Present: soft, non-tender, non-distended, normal bowel sounds - Integumentary Integumentary: Present: clear, warm - Musculoskeletal Musculoskeletal: strength equal bilaterally - Psychiatric Psychiatric: appropriate mood/affect, cooperative - Neurologic Neurologic: CNII-XII intact, moves all extremities Plan Activity: advance as tolerated, no driving until cleared by PCP, fall precautions, other (seizure precautions) Diet: regular Special Instructions: smoking cessation Additional Instructions: Strongly advised to quit alcohol intake. Advised to go for alcohol rehabilitation and attained AAA support group. Advised to quit tobacco use. No driving or operating heavy machinery until cleared by primary care physician. Do not drive under the influence of alcohol Follow up with: PRIMARY CARE, [Referring] - 3-5 Days Prescriptions: Folic Acid [Folvite] 1 mg PO DAILY #30 tablet Folic Acid 1 mg PO DAILY #30 tablet Thiamine [Vitamin B-1] 100 mg PO QDAY #30 tablet
[2016-08-21 15:11] VITALS: BP 151/74
== END 2016-08-21 15:10 | disposition home health service (06) | DRG 896 ==
LOC: ED 13:18 → 3A 18:14
PROVIDERS: ADMIT Internal Medicine; ATTEND Internal Medicine
DX: F10.239 Alcohol dependence with withdrawal, unspecified (principal); G93.41 Metabolic encephalopathy; N17.0 Acute kidney failure with tubular necrosis; E87.1 Hypo-osmolality and hyponatremia; I10 Essential (primary) hypertension; M19.90 Unspecified osteoarthritis, unspecified site; J44.9 Chronic obstructive pulmonary disease, unspecified; M10.9 Gout, unspecified; F17.210 Nicotine dependence, cigarettes, uncomplicated; G40.909 Epilepsy, unspecified, not intractable, without status epilepticus; Z71.41 Alcohol abuse counseling and surveillance of alcoholic; Z91.013 Allergy to seafood; Z79.899 Other long term (current) drug therapy; Z82.49 Family history of ischemic heart disease and other diseases of the circulatory system
CPT/HCPCS: 36415; 70450; 71010; 80048; 80053; 80307; 80320; 81001; 82140; 82550; 82553; 82962; 83735; 83880; 84100; 84443; 84484; 85025; 85610; 85730; 93005; 93010; 96365; 99285; G0480; J1953; J7030

== ENCOUNTER 2017-01-08 19:27 | Inpatient (IN) | payer MEDICARE ==
[2017-01-08 21:27] LABS: Basophils % (Auto) 0.3 % (0.0-1.8); Hemoglobin 13.9 gm/dl (11.8-15.2); Mean Corpuscular HGB Conc 34 % (32-34); Mean Corpuscular Hemoglobin 34 pg (28-32); Mean Corpuscular Volume 100 fl (84-94); Platelet Count 162 K/mm3 (140-440); Red Blood Count 4.09 M/mm3 (3.65-5.03); Red Cell Distribution Width 15.1 % (13.2-15.2); White Blood Count 7.3 K/mm3 (4.5-11.0)
[2017-01-08 21:48] LABS: Alanine Aminotransferase 14 units/L (7-56); Albumin 4.5 g/dL (3.9-5); Albumin/Globulin Ratio 1.5 %; Alkaline Phosphatase 107 units/L (35-129); Anion Gap 20 mmol/L; BUN/Creatinine Ratio 18; Blood Urea Nitrogen 18 mg/dL (9-20); Calcium 9.7 mg/dL (8.4-10.2); Carbon Dioxide 25 mmol/L (22-30); Chloride 89.6 mmol/L (98-107); Glucose 132 mg/dL (75-100); Lipase 174 units/L (13-60); Potassium 4.8 mmol/L (3.6-5.0); Sodium 130 mmol/L (137-145); Total Protein 7.6 g/dL (6.3-8.2)
[2017-01-08 23:38] LABS: Bacteria,Urine 1+ /HPF (Negative); Bilirubin,Urine NEG (Negative); Blood,Urine SM (Negative); Ketones,Urine NEG (Negative); Leukocyte Esterase,Urine MOD (Negative); Nitrite,Urine NEG (Negative)
[2017-01-09] MEDS ORDERED: MORPHINE IV ONE (03:17)
[2017-01-09] MEDS ORDERED: NACL 0.9% 1000 ML 1,000 ML IV ONE (03:18)
--- NOTE | 2017-01-09 05:03 | Emergency Department Report ---
ED General Adult HPI - General Chief complaint: Abdominal Pain Stated complaint: ABD PAIN Time Seen by Provider: 01/09/17 03:17 Source: patient Mode of arrival: Ambulatory Limitations: No Limitations - History of Present Illness Initial comments: Patient is a 66-year-old male past medical history of alcohol abuse and pancreatitis who presents with epigastric abdominal pain that has been going on for last couple days. Patient states the pain as a burning type pain it's an 8 out of 10 and restart his stomach taken alcohol makes the pain worse nothing makes it better. Patient states that he is nauseous but he has not had any vomiting. He denies having any chest pain or any diarrhea or any fatigued. He also denies having any shortness of breath. Severity scale (0 -10): 7 - Related Data Home Medications Medication Instructions Recorded Confirmed Last Taken Amlodipine Besylate [Norvasc] 5 mg PO DAILY 11/02/12 08/19/16 02/27/14 FLUoxetine HCL [PROzac] 60 mg PO QAM 11/02/12 08/19/16 02/27/14 Gabapentin 200 mg PO TID 11/02/12 08/19/16 02/27/14 levETIRAcetam [Keppra TAB] 1,000 mg PO BID 11/02/12 08/19/16 02/27/14 Allopurinol [Zyloprim] 300 mg PO QDAY 02/27/14 08/19/16 02/27/14 Cholecalciferol Vit D3 [Vitamin D3] 1,000 unit PO QDAY 02/27/14 08/19/16 Ipratropium/Albuterol Sulfate 1 ampul IH Q6HRT PRN 02/27/14 08/19/16 Unknown [DUONEB *Not for PRN Use*] Mirtazapine [Remeron] 15 mg PO DAILY 02/27/14 08/19/16 02/27/14 Thiamine HCl [B-1] 200 mg PO DAILY 02/27/14 08/19/16 02/27/14 Previous Rx's Medication Instructions Recorded Last Taken Type Atenolol [Tenormin] 50 mg PO DAILY #30 tablet 07/31/14 Unknown Rx Capsaicin 0.075% [Zostrix Hp 1 applicatio TP TID #1 tube 06/21/15 Unknown Rx 0.075%] Lipase/Protease/Amylase 1 each PO TID #90 capsule. 07/31/14 Unknown Rx [Pancrelipase 5,000 Unit Cap] Omeprazole [PriLOSEC] 40 mg PO DAILY #30 capsule. 07/31/14 Unknown Rx Nicotine [Habitrol] 14 mg TD DAILY #14 patch 08/24/15 Unknown Rx Ondansetron [Zofran ODT TAB] 4 mg PO Q4H PRN #15 tab.rapdis 08/24/15 Unknown Rx oxyCODONE /ACETAMINOPHEN [Percocet 1 tab PO Q6H PRN #30 tablet 08/24/15 Unknown Rx 5/325 mg] Folic Acid 1 mg PO DAILY #30 tablet 08/21/16 Unknown Rx Folic Acid [Folvite] 1 mg PO DAILY #30 tablet 08/21/16 Unknown Rx Thiamine [Vitamin B-1] 100 mg PO QDAY #30 tablet 08/21/16 Unknown Rx Allergies Allergy/AdvReac Type Severity Reaction Status Date / Time shellfish derived Allergy Swelling Verified 08/21/15 22:08 lobster Allergy lips swell Uncoded 08/21/13 14:24 ED Review of Systems ROS: Stated complaint: ABD PAIN Other details as noted in HPI Constitutional: denies: chills, fever Eyes: denies: eye pain, eye discharge, vision change ENT: denies: ear pain, throat pain Respiratory: denies: cough, shortness of breath, wheezing Cardiovascular: denies: chest pain, palpitations Endocrine: no symptoms reported Gastrointestinal: abdominal pain, nausea. denies: diarrhea Genitourinary: denies: urgency, dysuria Musculoskeletal: denies: back pain, joint swelling, arthralgia Skin: denies: rash, lesions Neurological: denies: headache, weakness, paresthesias Psychiatric: denies: anxiety, depression Hematological/Lymphatic: denies: easy bleeding, easy bruising ED Past Medical Hx - Past Medical History Previous Medical History?: Yes Hx Hypertension: Yes Hx Congestive Heart Failure: Yes Hx Diabetes: No Hx Arthritis: Yes Hx Seizures: Yes Hx Asthma: No Hx COPD: Yes Additional medical history: gout. pancreatitis. DDD - Surgical History Past Surgical History?: Yes Additional Surgical History: Pancreatitis. Acute renal failure. - Social History Smoking Status: Never Smoker - Medications Home Medications: Home Medications Medication Instructions Recorded Confirmed Last Taken Type Amlodipine Besylate [Norvasc] 5 mg PO DAILY 11/02/12 08/19/16 02/27/14 History FLUoxetine HCL [PROzac] 60 mg PO QAM 11/02/12 08/19/16 02/27/14 History Gabapentin 200 mg PO TID 11/02/12 08/19/16 02/27/14 History levETIRAcetam [Keppra TAB] 1,000 mg PO BID 11/02/12 08/19/16 02/27/14 History Allopurinol [Zyloprim] 300 mg PO QDAY 02/27/14 08/19/16 02/27/14 History Cholecalciferol Vit D3 [Vitamin D3] 1,000 unit PO QDAY 02/27/14 08/19/16 History Ipratropium/Albuterol Sulfate 1 ampul IH Q6HRT PRN 02/27/14 08/19/16 Unknown History [DUONEB *Not for PRN Use*] Mirtazapine [Remeron] 15 mg PO DAILY 02/27/14 08/19/16 02/27/14 History Thiamine HCl [B-1] 200 mg PO DAILY 02/27/14 08/19/16 02/27/14 History Atenolol [Tenormin] 50 mg PO DAILY #30 tablet 07/31/14 08/19/16 Unknown Rx Capsaicin 0.075% [Zostrix Hp 1 applicatio TP TID #1 tube 07/31/14 08/19/16 Unknown Rx 0.075%] Lipase/Protease/Amylase 1 each PO TID #90 capsule. 07/31/14 08/19/16 Unknown Rx [Pancrelipase Dr 5,000 Unit Cap] Omeprazole [PriLOSEC] 40 mg PO DAILY #30 capsule. 07/31/14 08/19/16 Unknown Rx Nicotine [Habitrol] 14 mg TD DAILY #14 patch 08/24/15 08/19/16 Unknown Rx Ondansetron [Zofran ODT TAB] 4 mg PO Q4H PRN #15 tab.rapdis 08/24/15 08/19/16 Unknown Rx oxyCODONE /ACETAMINOPHEN [Percocet 1 tab PO Q6H PRN #30 tablet 08/24/15 Unknown Rx 5/325 mg] Folic Acid 1 mg PO DAILY #30 tablet 08/21/16 Unknown Rx Folic Acid [Folvite] 1 mg PO DAILY #30 tablet 08/21/16 Unknown Rx Thiamine [Vitamin B-1] 100 mg PO QDAY #30 tablet 08/21/16 Unknown Rx ED Physical Exam - General Limitations: No Limitations General appearance: alert, in no apparent distress - Head Head exam: Present: atraumatic, normocephalic - Eye Eye exam: Present: normal appearance - ENT ENT exam: Present: mucous membranes moist - Neck Neck exam: Present: normal inspection - Respiratory Respiratory exam: Present: normal lung sounds bilaterally. Absent: respiratory distress - Cardiovascular Cardiovascular Exam: Present: regular rate, normal rhythm. Absent: systolic murmur, diastolic murmur, rubs, gallop - GI/Abdominal GI/Abdominal exam: Present: soft, tenderness, normal bowel sounds - Rectal Rectal exam: Present: deferred - Extremities Exam Extremities exam: Present: normal inspection - Back Exam Back exam: Present: normal inspection - Neurological Exam Neurological exam: Present: alert, oriented X3 - Psychiatric Psychiatric exam: Present: normal affect, normal mood - Skin Skin exam: Present: warm, dry, intact, normal color. Absent: rash ED Course Vital Signs 01/08/17 01/09/17 01/09/17 20:34 00:45 01:01 Temperature 98.4 F Pulse Rate 86 Respiratory 18 Rate Blood Pressure 142/85 132/93 O2 Sat by Pulse 96 100 100 Oximetry 01/09/17 01/09/17 01/09/17 01:11 01:12 01:15 Temperature 98.0 F Pulse Rate Respiratory 19 Rate Blood Pressure 132/93 O2 Sat by Pulse 100 98 Oximetry 01/09/17 01/09/17 01/09/17 01:31 01:45 02:00 Temperature Pulse Rate Respiratory Rate Blood Pressure 126/84 126/84 122/86 O2 Sat by Pulse 98 99 97 Oximetry 01/09/17 01/09/17 01/09/17 02:15 02:31 02:45 Temperature Pulse Rate Respiratory Rate Blood Pressure 122/86 148/85 148/85 O2 Sat by Pulse 98 97 97 Oximetry 01/09/17 01/09/17 01/09/17 03:00 03:15 03:30 Temperature Pulse Rate Respiratory Rate Blood Pressure 159/88 159/88 155/86 O2 Sat by Pulse 98 97 99 Oximetry 01/09/17 01/09/17 01/09/17 03:45 04:00 04:15 Temperature Pulse Rate Respiratory Rate Blood Pressure 155/86 163/86 163/86 O2 Sat by Pulse 98 97 96 Oximetry 01/09/17 01/09/17 01/09/17 04:30 04:45 05:00 Temperature Pulse Rate Respiratory Rate Blood Pressure 160/80 160/80 153/80 O2 Sat by Pulse 97 95 96 Oximetry ED Medical Decision Making - Lab Data Result diagrams: 01/08/17 21:14 01/08/17 21:14 Lab Results 01/08/17 01/08/17 01/08/17 Range/Units 21:14 21:14 23:10 WBC 7.3 (4.5-11.0) K/mm3 RBC 4.09 (3.65-5.03) M/mm3 Hgb 13.9 (11.8-15.2) gm/dl Hct 41.0 (35.5-45.6) % MCV 100 H (84-94) fl MCH 34 H (28-32) pg MCHC 34 (32-34) % RDW 15.1 (13.2-15.2) % Plt Count 162 (140-440) K/mm3 Lymph % (Auto) 12.8 L (13.4-35.0) % [place] % (Auto) 9.4 H (0.0-7.3) % Eos % (Auto) 0.0 (0.0-4.3) % Baso % (Auto) 0.3 (0.0-1.8) % Lymph # 0.9 L (1.2-5.4) K/mm3 [place] # 0.7 (0.0-0.8) K/mm3 Eos # 0.0 (0.0-0.4) K/mm3 Baso # 0.0 (0.0-0.1) K/mm3 Seg Neutrophils % 77.5 H (40.0-70.0) % Seg Neutrophils # 5.7 (1.8-7.7) K/mm3 Sodium 130 L (137-145) mmol/L Potassium 4.8 (3.6-5.0) mmol/L Chloride 89.6 L (98-107) mmol/L Carbon Dioxide 25 (22-30) mmol/L Anion Gap 20 mmol/L BUN 18 (9-20) mg/dL Creatinine 1.0 (0.8-1.5) mg/dL Estimated GFR > 60 ml/min BUN/Creatinine Ratio 18 % Glucose 132 H (75-100) mg/dL Calcium 9.7 (8.4-10.2) mg/dL Total Bilirubin 0.40 (0.1-1.2) mg/dL AST 16 (5-40) units/L ALT 14 (7-56) units/L Alkaline Phosphatase 107 (35-129) units/L Total Protein 7.6 (6.3-8.2) g/dL Albumin 4.5 (3.9-5) g/dL Albumin/Globulin Ratio 1.5 % Lipase 174 H (13-60) units/L Urine Color Yellow (Yellow) Urine Turbidity Slightly cloudy (Clear) Urine pH 6.0 (5.0-7.0) Ur Specific [place] 1.019 (1.003-1.030) Urine Protein 100 mg/dl (Negative) mg/dL Urine Glucose (UA) Neg (Negative) mg/dL Urine Ketones Neg (Negative) mg/dL Urine Blood Sm (Negative) Urine Nitrite Neg (Negative) Urine Bilirubin Neg (Negative) Urine Urobilinogen 2.0 (<2.0) mg/dL Ur Leukocyte Esterase Mod (Negative) Urine WBC (Auto) 56.0 H (0.0-6.0) /HPF Urine RBC (Auto) 4.0 (0.0-6.0) /HPF U Epithel Cells (Auto) 2.0 (0-13.0) /HPF Urine Bacteria (Auto) 1+ (Negative) /HPF - Medical Decision Making Chief medical diagnosis: Pancreatitis Furniture medical diagnosis: Cholelithiasis, cholecystitis, GERD, gastritis CBC, CMP, lipase, IV fluids, IV pain medication and IV Pepcid Patient laboratory findings are consistent with pancreatitis also has hyponatremia. Due to his age and his frequent admissions before in the past for pancreatitis L admit him to the hospital service. Discussed outpatient patient agrees with plan. Discussed plan with Dr. De La Fuente I will admit patient to the hospitalist service. For control of his pancreatitis. Critical care attestation.: If time is entered above; I have spent that time in minutes in the direct care of this critically ill patient, excluding procedure time. ED Disposition Clinical Impression: Nausea Pancreatitis Qualifiers: Chronicity: acute Pancreatitis type: alcohol induced Acute pancreatitis complication: unspecified Qualified Code(s): K85.20 - Alcohol induced acute pancreatitis without necrosis or infection Disposition: OP ADMIT IP TO THIS HOSP Is pt being admited?: Yes Does the pt Need Aspirin: No Condition: Stable Referrals: PRIMARY CARE, [Primary Care Provider] - 3-5 Days
[2017-01-09] MEDS ORDERED: SUBLIMAZE IV ONE (05:07)
[2017-01-09] MEDS ORDERED: PEPCID IV ONE (05:07)
--- NOTE | 2017-01-09 05:44 | History and Physical Report ---
History of Present Illness Chief complaint: My stomach is killing me doc History of present illness: 66 YO Male with HTN, COPD, OA, Seizure Disorder, Pancreatitis, ETOH Dependence, Nicotine Dependence presents to ED for evaluation. Pt states that he has experienced pain in his abdomen for the past 4 days. Pt states that his pain is 7/10, constant, associated with persistent nausea, and multiple episodes of vomiting. Pt states that pain is worse when he drinks alcohol. Pt also states that his last drink was 3 days ago. Patient denies diarrhea, headache or pain, fever,chills, CP, Palpitations, Seizures, auditory/visual hallucinations, tramors, productive cough, or recent ill contacts. Pt seen and evaluated in ED and found to be in distress. Pt treated with banana bag, and supportive care. Past History Past Medical History: arthritis, COPD, hypertension, seizures, other ( Pancreatitis, ETOH dependence) Past Surgical History: No surgical history, Other (reviewed) Social history: , smoking, alcohol abuse. denies: prescription drug abuse, IV drug use Family history: hypertension Medications and Allergies Allergies Allergy/AdvReac Type Severity Reaction Status Date / Time shellfish derived Allergy Swelling Verified 08/21/15 22:08 lobster Allergy lips swell Uncoded 08/21/13 14:24 Home Medications Medication Instructions Recorded Confirmed Last Taken Type Amlodipine Besylate [Norvasc] 5 mg PO DAILY 11/02/12 08/19/16 02/27/14 History FLUoxetine HCL [PROzac] 60 mg PO QAM 11/02/12 08/19/16 02/27/14 History Gabapentin 200 mg PO TID 11/02/12 08/19/16 02/27/14 History levETIRAcetam [Keppra TAB] 1,000 mg PO BID 11/02/12 08/19/16 02/27/14 History Allopurinol [Zyloprim] 300 mg PO QDAY 02/27/14 08/19/16 02/27/14 History Cholecalciferol Vit D3 [Vitamin D3] 1,000 unit PO QDAY 02/27/14 08/19/16 History Ipratropium/Albuterol Sulfate 1 ampul IH Q6HRT PRN 02/27/14 08/19/16 Unknown History [DUONEB *Not for PRN Use*] Mirtazapine [Remeron] 15 mg PO DAILY 02/27/14 08/19/16 02/27/14 History Thiamine HCl [B-1] 200 mg PO DAILY 02/27/14 08/19/16 02/27/14 History Atenolol [Tenormin] 50 mg PO DAILY #30 tablet 07/31/14 08/19/16 Unknown Rx Capsaicin 0.075% [Zostrix Hp 1 applicatio TP TID #1 tube 07/31/14 08/19/16 Unknown Rx 0.075%] Lipase/Protease/Amylase 1 each PO TID #90 capsule. 07/31/14 08/19/16 Unknown Rx [Pancrelipase 5,000 Unit Cap] Omeprazole [PriLOSEC] 40 mg PO DAILY #30 capsule. 07/31/14 08/19/16 Unknown Rx Nicotine [Habitrol] 14 mg TD DAILY #14 patch 08/24/15 08/19/16 Unknown Rx Ondansetron [Zofran ODT TAB] 4 mg PO Q4H PRN #15 tab.rapdis 08/24/15 08/19/16 Unknown Rx oxyCODONE /ACETAMINOPHEN [Percocet 1 tab PO Q6H PRN #30 tablet 08/24/15 Unknown Rx 5/325 mg] Folic Acid 1 mg PO DAILY #30 tablet 08/21/16 Unknown Rx Folic Acid [Folvite] 1 mg PO DAILY #30 tablet 08/21/16 Unknown Rx Thiamine [Vitamin B-1] 100 mg PO QDAY #30 tablet 08/21/16 Unknown Rx Review of Systems Constitutional: no weight loss, no weight gain, no fever, no chills Ears, nose, mouth and throat: no ear pain, no ear discharge, no tinnitis, no decreased hearing, no nose pain, no nasal congestion, no nasal discharge Cardiovascular: no chest pain, no orthopnea, no palpitations, no rapid/ irregular heart beat, no edema, no syncope Respiratory: no cough, no cough with sputum, no excessive sputum, no hemoptysis , no shortness of breath Gastrointestinal: abdominal pain, nausea, vomiting, no constipation, no hematemesis, no coffee ground emesis, no BRBPR, no melena, no hematochezia, no loss of appetite, no early satiety, no heartburn Genitourinary Male: no dysuria, no hematuria, no flank pain, no discharge Rectal: no pain, no incontinence, no bleeding Musculoskeletal: no neck stiffness, no neck pain, no shooting arm pain, no arm numbness/tingling, no low back pain, no leg numbness/tingling Integumentary: no rash, no pruritis, no redness, no sores Neurological: no head injury, no transient paralysis, no paralysis, no weakness , no parathesias, no numbness, no tingling Psychiatric: no anxiety, no memory loss, no change in sleep habits, no sleep disturbances, no insomnia, no hypersomnia Endocrine: no cold intolerance, no heat intolerance, no polyphagia, no excessive thirst, no polydipsia, no polyuria, no nocturia Hematologic/Lymphatic: no easy bruising, no easy bleeding Allergic/Immunologic: no urticaria, no allergic rhinitis, no wheezing Exam - Constitutional Vitals: Temp Pulse Resp BP Pulse Ox 98.0 F 86 19 153/80 96 01/09/17 01:11 01/08/17 20:34 01/09/17 01:12 01/09/17 05:00 01/09/17 05:00 General appearance: Present: mild distress, cachectic, disheveled, malodorous - EENT Eyes: Present: PERRL ENT: hearing intact, clear oral mucosa - Neck Neck: Present: supple, normal ROM - Respiratory Respiratory effort: normal Respiratory: bilateral: CTA - Cardiovascular Heart Sounds: Present: S1 & S2. Absent: rub, click - Extremities Extremities: pulses symmetrical, No edema Peripheral Pulses: within normal limits - Abdominal General gastrointestinal: Present: soft, non-tender, non-distended, normal bowel sounds Male genitourinary: Present: normal - Integumentary Integumentary: Present: clear, warm, dry - Musculoskeletal Musculoskeletal: gait normal, strength equal bilaterally - Psychiatric Psychiatric: appropriate mood/affect, intact judgment & insight, agitated - Neurologic Neurologic: CNII-XII intact, moves all extremities Results - Labs CBC & Chem 7: 01/08/17 21:14 01/08/17 21:14 Labs: Abnormal lab results 01/08/17 01/08/17 01/08/17 Range/Units 21:14 21:14 23:10 MCV 100 H (84-94) fl MCH 34 H (28-32) pg Lymph % (Auto) 12.8 L (13.4-35.0) % Carbon % (Auto) 9.4 H (0.0-7.3) % Lymph # 0.9 L (1.2-5.4) K/mm3 Seg Neutrophils % 77.5 H (40.0-70.0) % Sodium 130 L (137-145) mmol/L Chloride 89.6 L (98-107) mmol/L Glucose 132 H (75-100) mg/dL Lipase 174 H (13-60) units/L Urine WBC (Auto) 56.0 H (0.0-6.0) /HPF Assessment and Plan - Patient Problems (1) UTI (urinary tract infection) Current Visit: Yes Status: Acute Qualifiers: Encounter type: initial encounter Plan to address problem: IV abx, IVF, supportive care, monitor uop q shift (2) Hyponatremia syndrome Current Visit: Yes Status: Acute Plan to address problem: IVF resuscitation therapy, monitor uop q shift, (3) Alcoholic gastritis Current Visit: Yes Status: Acute Plan to address problem: Banana bag, carafate, ppi therapy, ETOH cessation counseleing, diet as tolerated , CIWA protocol (4) Seizure disorder Current Visit: No Status: Chronic Plan to address problem: continue current therapy, empriic treatement for ETOH withdrawl. (5) DVT prophylaxis Current Visit: Yes Status: Acute
[2017-01-09] MEDS ORDERED: DULCOLAX PR PRN (05:47)
[2017-01-09] MEDS ORDERED: TYLENOL PO PRN (05:47)
[2017-01-09] MEDS ORDERED: ZOFRAN IV PRN (05:47)
[2017-01-09] MEDS ORDERED: PROVENTIL IH PRN (05:47)
[2017-01-09] MEDS ORDERED: MILK OF MAGNESIA PO PRN (05:47)
[2017-01-09] MEDS ORDERED: ATIVAN IV PRN ×2 (05:51)
[2017-01-09] MEDS: 1: FOLVITE 1 MG, INFUVITE 10 ML, VITAMIN B-1 100 MG in NACL 0.9% 1000 ML 988.8 ML 2: NA IV SCH ×2 (07:15→22:28)
[2017-01-09] MEDS: CARAFATE PO SCH ×4 (08:16→21:50)
[2017-01-09] MEDS ORDERED: DUONEB *Not for PRN Use IH (08:42)
--- NOTE | 2017-01-09 08:42 | Progress Note ---
Assessment and Plan Assessment and plan: --Acute pancreatitis; clear liquid diet, IV fluids, pain medications, closely monitor --Alcoholic gastritis; Protonix, supportive care --Urinary tract infection; empiric antibiotics, follow cultures --Hyponatremia, mild improvement, continue normal saline, follow sodium levels --History of seizures; possible alcohol withdrawal seizures, seizure precautions , antiepileptic medications --Chronic alcohol use; counseling done advised to quit alcohol intake, as well as alcohol rehabilitation, patient verbalized understanding --Alcohol withdrawal symptoms; initiate CIWA protocol --DVT prophylaxis; Lovenox Plan of care discussed with the patient and his nurse Possible discharge in 1-2 days if stable History Interval history: patient seen and examined, records reviewed Patient has mild nausea no vomiting, alert awake oriented No agitation or tremulousness Vital signs reviewed Hospitalist Physical - Constitutional Vitals: Temp Pulse Resp BP Pulse Ox 98.6 F 86 19 132/63 93 01/09/17 05:00 01/08/17 20:34 01/09/17 01:12 01/09/17 06:15 01/09/17 06:15 General appearance: Present: mild distress, cachectic, disheveled, malodorous - EENT Eyes: Present: PERRL, EOM intact - Neck Neck: Present: supple, normal ROM - Respiratory Respiratory effort: normal Respiratory: bilateral: diminished, negative: rales, rhonchi, wheezing - Cardiovascular Rhythm: regular Heart Sounds: Present: S1 & S2 - Extremities Extremities: no ischemia, pulses intact, pulses symmetrical - Abdominal General gastrointestinal: soft, non-tender, non-distended, normal bowel sounds - Integumentary Integumentary: Present: clear, warm - Psychiatric Psychiatric: appropriate mood/affect, cooperative - Neurologic Neurologic: CNII-XII intact, moves all extremities Results - Labs CBC & Chem 7: 01/08/17 21:14 01/08/17 21:14 Labs: Laboratory Last Values WBC 7.3 K/mm3 (4.5-11.0) 01/08/17 21:14 RBC 4.09 M/mm3 (3.65-5.03) 01/08/17 21:14 Hgb 13.9 gm/dl (11.8-15.2) 01/08/17 21:14 Hct 41.0 % (35.5-45.6) 01/08/17 21:14 MCV 100 fl (84-94) H 01/08/17 21:14 MCH 34 pg (28-32) H 01/08/17 21:14 MCHC 34 % (32-34) 01/08/17 21:14 RDW 15.1 % (13.2-15.2) 01/08/17 21:14 Plt Count 162 K/mm3 (140-440) 01/08/17 21:14 Lymph % (Auto) 12.8 % (13.4-35.0) L 01/08/17 21:14 [place] % (Auto) 9.4 % (0.0-7.3) H 01/08/17 21:14 Eos % (Auto) 0.0 % (0.0-4.3) 01/08/17 21:14 Baso % (Auto) 0.3 % (0.0-1.8) 01/08/17 21:14 Lymph # 0.9 K/mm3 (1.2-5.4) L 01/08/17 21:14 [place] # 0.7 K/mm3 (0.0-0.8) 01/08/17 21:14 Eos # 0.0 K/mm3 (0.0-0.4) 01/08/17 21:14 Baso # 0.0 K/mm3 (0.0-0.1) 01/08/17 21:14 Seg Neutrophils % 77.5 % (40.0-70.0) H 01/08/17 21:14 Seg Neutrophils # 5.7 K/mm3 (1.8-7.7) 01/08/17 21:14 Sodium 130 mmol/L (137-145) L 01/08/17 21:14 Potassium 4.8 mmol/L (3.6-5.0) 01/08/17 21:14 Chloride 89.6 mmol/L (98-107) L 01/08/17 21:14 Carbon Dioxide 25 mmol/L (22-30) 01/08/17 21:14 Anion Gap 20 mmol/L 01/08/17 21:14 BUN 18 mg/dL (9-20) 01/08/17 21:14 Creatinine 1.0 mg/dL (0.8-1.5) 01/08/17 21:14 Estimated GFR > 60 ml/min 01/08/17 21:14 BUN/Creatinine Ratio 18 % 01/08/17 21:14 Glucose 132 mg/dL (75-100) H 01/08/17 21:14 Calcium 9.7 mg/dL (8.4-10.2) 01/08/17 21:14 Total Bilirubin 0.40 mg/dL (0.1-1.2) 01/08/17 21:14 AST 16 units/L (5-40) 01/08/17 21:14 ALT 14 units/L (7-56) 01/08/17 21:14 Alkaline Phosphatase 107 units/L (35-129) 01/08/17 21:14 Total Protein 7.6 g/dL (6.3-8.2) 01/08/17 21:14 Albumin 4.5 g/dL (3.9-5) 01/08/17 21:14 Albumin/Globulin Ratio 1.5 % 01/08/17 21:14 Lipase 174 units/L (13-60) H 01/08/17 21:14 Urine Color Yellow (Yellow) 01/08/17 23:10 Urine Turbidity Slightly cloudy (Clear) 01/08/17 23:10 Urine pH 6.0 (5.0-7.0) 01/08/17 23:10 Ur Specific [place] 1.019 (1.003-1.030) 01/08/17 23:10 Urine Protein 100 mg/dl mg/dL (Negative) 01/08/17 23:10 Urine Glucose (UA) Neg mg/dL (Negative) 01/08/17 23:10 Urine Ketones Neg mg/dL (Negative) 01/08/17 23:10 Urine Blood Sm (Negative) 01/08/17 23:10 Urine Nitrite Neg (Negative) 01/08/17 23:10 Urine Bilirubin Neg (Negative) 01/08/17 23:10 Urine Urobilinogen 2.0 mg/dL (<2.0) 01/08/17 23:10 Ur Leukocyte Esterase Mod (Negative) 01/08/17 23:10 Urine WBC (Auto) 56.0 /HPF (0.0-6.0) H 01/08/17 23:10 Urine RBC (Auto) 4.0 /HPF (0.0-6.0) 01/08/17 23:10 U Epithel Cells (Auto) 2.0 /HPF (0-13.0) 01/08/17 23:10 Urine Bacteria (Auto) 1+ /HPF (Negative) 01/08/17 23:10 Plasma/Serum Alcohol < 0.01 gm% (0-0.07) 01/09/17 06:11
--- NOTE | 2017-01-09 09:08 | Cat Scan Report ---
CT ABDOMEN PELVIS WITH CONTRAST: HISTORY: abdominal pain. COMPARISON: CT abdomen pelvis without contrast dated 08/22/15. CT abdomen and pelvis with contrast dated 07/29/14.. TECHNIQUE: Helical CT in 1.25mm intervals following IV contrast. Sagittal and coronal reconstructions. FINDINGS: Lung bases: normal. Liver: Mild diffuse fatty infiltration of the liver is unchanged. No evidence for mass, enlargement or surface nodularity. The distal portal vein appears to be narrowed or compressed. There is early cavernous transformation within the guerrero hepatis. No portal vein thrombosis identified. Biliary system: Cholecystectomy. No biliary dilatation is appreciated. Pancreas: There is diffuse dilatation of the pancreatic duct measuring up to 1 cm in diameter which is unchanged. There may be a stricture in the proximal pancreatic duct. There is no discrete pancreatic mass although the inferior pancreatic head remains slightly prominent which is unchanged over multiple previous exams. There is also suggestion of mild surrounding fat stranding in the pancreatic head region which could represent an early pancreatitis. There are a few mildly enlarged peripancreatic lymph nodes measuring up to 1.5 cm in long axis. Spleen: normal. Kidneys/ureters/bladder: normal. Adrenal glands: The right adrenal gland is normal. Mild thickening of the left adrenal gland is noted unchanged. Aorta: Mild calcifications. No aneurysm or dissection. Intestines: Unremarkable given no oral contrast was administered. Appendix: normal. Pelvic viscera: normal. Musculoskeletal: Moderate thoracolumbar spondylosis. No fracture or suspicious bony lesion. IMPRESSION: The pancreas is slightly abnormal. The pancreatic duct is dilated up to 1 cm which is unchanged. Signs of mild pancreatitis are suspected as well. There are a few mildly enlarged lymph nodes surrounding the pancreatic head which are presumably reactive in nature. Mild hepatic steatosis.
[2017-01-09] MEDS: KEPPRA PO SCH ×2 (11:59→21:50)
[2017-01-09] MEDS: ZYLOPRIM PO SCH (11:59)
[2017-01-09] MEDS: PEPCID PO SCH ×2 (12:00→21:50)
[2017-01-09] MEDS: FOLVITE PO SCH (12:00)
[2017-01-09] MEDS: TENORMIN PO SCH (12:00)
[2017-01-09] MEDS: VITAMIN B-1 PO SCH (12:01)
[2017-01-09] MEDS: LEVAQUIN 500MG/100ML 500 MG/100 ML BAG IV SCH (12:01)
[2017-01-09] MEDS ORDERED: HABITROL TD SCH (21:00)
[2017-01-09] MEDS: PERCOCET 5/325 PO PRN (21:49)
[2017-01-10] MEDS: 1: FOLVITE 1 MG, INFUVITE 10 ML, VITAMIN B-1 100 MG in NACL 0.9% 1000 ML 988.8 ML 2: NA IV SCH (00:25)
[2017-01-10] MEDS ORDERED: NACL 0.9% 1000 ML 1,000 ML IV SCH (01:00)
[2017-01-10 07:29] LABS: Basophils % (Auto) 0.3 % (0.0-1.8); Eosinophils % (Auto) 0.4 % (0.0-4.3); Hematocrit 35.7 % (35.5-45.6); Hemoglobin 11.6 gm/dl (11.8-15.2); Mean Corpuscular HGB Conc 33 % (32-34); Mean Corpuscular Hemoglobin 33 pg (28-32); Mean Corpuscular Volume 101 fl (84-94); Platelet Count 135 K/mm3 (140-440); Red Blood Count 3.53 M/mm3 (3.65-5.03); Red Cell Distribution Width 14.8 % (13.2-15.2); White Blood Count 5.1 K/mm3 (4.5-11.0)
[2017-01-10 07:40] LABS: Alanine Aminotransferase 14 units/L (7-56); Albumin 3.5 g/dL (3.9-5); Albumin/Globulin Ratio 1.3 %; Alkaline Phosphatase 93 units/L (35-129); Anion Gap 17 mmol/L; BUN/Creatinine Ratio 17; Blood Urea Nitrogen 15 mg/dL (9-20); Calcium 8.7 mg/dL (8.4-10.2); Carbon Dioxide 24 mmol/L (22-30); Chloride 99.6 mmol/L (98-107); Glucose 148 mg/dL (75-100); Lipase 100 units/L (13-60); Sodium 136 mmol/L (137-145); Total Protein 6.2 g/dL (6.3-8.2)
[2017-01-10] MEDS: PERCOCET 5/325 PO PRN ×2 (08:18→13:44)
[2017-01-10 10:04] VITALS: BP 166/78
[2017-01-10] MEDS: FOLVITE PO SCH (10:40)
[2017-01-10] MEDS: PEPCID PO SCH (10:40)
[2017-01-10] MEDS: VITAMIN B-1 PO SCH (10:40)
[2017-01-10] MEDS: KEPPRA PO SCH (10:40)
[2017-01-10] MEDS: TENORMIN PO SCH (10:40)
[2017-01-10] MEDS: LEVAQUIN 500MG/100ML 500 MG/100 ML BAG IV SCH (10:41)
[2017-01-10] MEDS: ZYLOPRIM PO SCH (10:41)
--- NOTE | 2017-01-10 12:35 | Discharge Summary ---
Providers - Providers Date of Admission: 01/09/17 05:47 Date of discharge: 01/10/17 Attending physician: RAYSA BRANNON Primary care physician: [employer] [employer] Hospitalization Reason for admission: intractable nausea vomiting and abdominal pain Condition: Stable Pertinent studies: CT abdomen and pelvis; chronic pancreatic duct" 1 cm Mild pancreatitis Mild hepatic steatosis Hospital course: 66-year-old male patient with significant history of hypertension COPD seizure disorder pancreatitis and alcohol dependence nicotine dependence was admitted to the emergency room with excruciating abdominal pain, initial evaluation is consistent with acute pancreatitis, managed symptomatically counseling done and advised to quit alcohol as well as tobacco use Patient was placed on CIWA protocol, symptoms significantly improved On the day of discharge is comfortable in no new complaints, no agitation or tremulousness Vital signs stable, physical examination prior to discharge is unremarkable Patient strongly advised to go for alcohol rehabilitation Hemodynamically and clinically stable for discharge.with Family /friend Discharge diagnosis; --Acute pancreatitis; advance diet as tolerated --Alcoholic gastritis; Protonix, --Urinary tract infection; continue antibiotics, continue fluids --Hyponatremia, corrected --History of seizures; withdrawal seizures, seizure precautions, antiepileptic medications, do not drive ,to be cleared by primary care physician --Chronic alcohol use; counseling done advised to quit alcohol intake, --Alcohol withdrawal symptoms; resolved Disposition: DC-01 TO HOME OR SELFCARE Time spent for discharge: 32 min Core Measure Documentation - Palliative Care Palliative Care/ Comfort Measures: Not Applicable - Core Measures Any of the following diagnoses?: none Exam - Constitutional Vitals: Temp Pulse Resp BP Pulse Ox 98.0 F 64 20 166/78 98 01/10/17 08:15 01/10/17 08:15 01/10/17 08:15 01/10/17 08:15 01/10/17 08:15 General appearance: Present: no acute distress, well-nourished - EENT Eyes: Present: PERRL, EOM intact - Neck Neck: Present: supple, normal ROM - Respiratory Respiratory effort: normal Respiratory: negative: rales, rhonchi, wheezing - Cardiovascular Rhythm: regular Heart Sounds: Present: S1 & S2 - Extremities Extremities: no ischemia, No edema - Abdominal General gastrointestinal: Present: soft, non-tender, non-distended, normal bowel sounds - Integumentary Integumentary: Present: clear, warm - Musculoskeletal Musculoskeletal: strength equal bilaterally - Psychiatric Psychiatric: appropriate mood/affect, cooperative - Neurologic Neurologic: CNII-XII intact, moves all extremities Plan Activity: no restrictions, fall precautions Diet: regular Special Instructions: smoking cessation, other (advised to quit alcohol intake) Additional Instructions: Advised alcohol rehabilitation. Also encouraged to attend [facility] support group. Do not drink alcohol and drive, do not operate heavy machinery under the influence of alcohol, patient verbalized understanding Follow up with: PRIMARY CARE, [Primary Care Provider] - 3-5 Days Prescriptions: Famotidine [Pepcid] 20 mg PO BID #20 tablet Folic Acid [Folvite] 1 mg PO DAILY #30 tablet
[2017-01-10] MEDS: CARAFATE PO SCH (13:43)
[2017-01-11] MEDS ORDERED: LEVAQUIN PO SCH (10:00)
== END 2017-01-10 15:20 | disposition home or self-care (01) | DRG 391 ==
LOC: ED 19:27 → 3A 01-09 05:47
PROVIDERS: ADMIT Internal Medicine; ATTEND Internal Medicine
DX: K29.20 Alcoholic gastritis without bleeding (principal); K85.90 Acute pancreatitis without necrosis or infection, unspecified; N39.0 Urinary tract infection, site not specified; E87.1 Hypo-osmolality and hyponatremia; G40.909 Epilepsy, unspecified, not intractable, without status epilepticus; Z79.899 Other long term (current) drug therapy; Z91.013 Allergy to seafood; I11.0 Hypertensive heart disease with heart failure; I50.9 Heart failure, unspecified; M19.90 Unspecified osteoarthritis, unspecified site; J44.9 Chronic obstructive pulmonary disease, unspecified; M10.9 Gout, unspecified; F10.20 Alcohol dependence, uncomplicated; F17.200 Nicotine dependence, unspecified, uncomplicated; Z82.49 Family history of ischemic heart disease and other diseases of the circulatory system; Z71.41 Alcohol abuse counseling and surveillance of alcoholic; Z71.6 Tobacco abuse counseling
CPT/HCPCS: 36415; 74177; 80053; 80320; 81001; 83690; 83735; 85025; 96361; 96374; 96375; G0480; J1956; J2270; J3010; J3411; J7030; Q9967

== ENCOUNTER 2017-10-29 19:37 | Inpatient (IN) | payer MEDICARE ==
[2017-10-29] MEDS ORDERED: NACL 0.9% 1000 ML 1,000 ML IV ONE (20:31)
[2017-10-29] MEDS ORDERED: NACL 0.9% 1000 ML 2,000 ML IV ONE (20:31)
--- NOTE | 2017-10-29 20:33 | Emergency Department Report ---
ED General Adult HPI - General Chief complaint: Weakness Stated complaint: WEAKNESS Time Seen by Provider: 10/29/17 20:11 Source: patient, family, EMS (ems notes not available at time of chart dictation), RN notes reviewed, old records reviewed Mode of arrival: Stretcher Limitations: Altered Mental Status, Physical Limitation - History of Present Illness Initial comments: This is a 59-year-old gentleman who is not known to this provider previously. Past medical history includes hypertension, COPD, seizure disorder, pancreatitis , alcohol dependence He is accompanied by his cousin, Mr. Radha Parekh; [phone]. Patient is brought to the hospital for evaluation of generalized weakness, frequent falls, and failure to thrive. The patient and family indicate this is been going on over the past day or so. It is constant, painless, does not radiate anywhere, does not have exacerbating or relieving factors. The patient denies headache, neck pain, chest pain, abdominal pain, shortness of breath. Family endorses multiple recent falls. -: Gradual Consistency: constant Improves with: none Worsens with: none Associated Symptoms: confusion, loss of appetite, malaise, weakness. denies: chest pain, cough, diaphoresis, fever/chills, headaches, nausea/vomiting, rash, seizure, shortness of breath, syncope - Related Data Home Medications Medication Instructions Recorded Confirmed Last Taken Amlodipine Besylate [Norvasc] 5 mg PO DAILY 11/02/12 01/09/17 02/27/14 FLUoxetine HCL [PROzac] 60 mg PO QAM 11/02/12 01/09/17 02/27/14 Gabapentin 200 mg PO TID 11/02/12 01/09/17 02/27/14 levETIRAcetam [Keppra TAB] 1,000 mg PO BID 11/02/12 01/09/17 02/27/14 Allopurinol [Zyloprim] 300 mg PO QDAY 02/27/14 01/09/17 02/27/14 Cholecalciferol Vit D3 [Vitamin D3] 1,000 unit PO QDAY 02/27/14 01/09/17 Ipratropium/Albuterol Sulfate 1 ampul IH Q6HRT PRN 02/27/14 01/09/17 Unknown [DUONEB *Not for PRN Use*] Mirtazapine [Remeron] 15 mg PO DAILY 02/27/14 01/09/17 02/27/14 Thiamine HCl [B-1] 200 mg PO DAILY 02/27/14 01/09/17 02/27/14 Previous Rx's Medication Instructions Recorded Last Taken Type Atenolol [Tenormin] 50 mg PO DAILY #30 tablet 07/31/14 Unknown Rx Lipase/Protease/Amylase 1 each PO TID #90 capsule. 07/31/14 Unknown Rx [Pancrelipase 5,000 Unit Cap] Nicotine [Habitrol] 14 mg TD DAILY #14 patch 08/24/15 Unknown Rx Famotidine [Pepcid] 20 mg PO BID #20 tablet 01/10/17 Unknown Rx Folic Acid [Folvite] 1 mg PO DAILY #30 tablet 01/10/17 Unknown Rx Allergies Allergy/AdvReac Type Severity Reaction Status Date / Time shellfish derived Allergy Swelling Verified 08/21/15 22:08 lobster Allergy lips swell Uncoded 08/21/13 14:24 ED Review of Systems ROS: Stated complaint: WEAKNESS Other details as noted in HPI Comment: Unobtainable due to pts medical conditions ED Past Medical Hx - Past Medical History Hx Hypertension: Yes Hx Congestive Heart Failure: Yes Hx Diabetes: No Hx Arthritis: Yes Hx Seizures: Yes Hx Asthma: No Hx COPD: Yes Additional medical history: gout. pancreatitis. DDD - Surgical History Additional Surgical History: Pancreatitis. Acute renal failure. - Social History Smoking Status: Current Every Day Smoker Substance Use Type: Alcohol - Medications Home Medications: Home Medications Medication Instructions Recorded Confirmed Last Taken Type Amlodipine Besylate [Norvasc] 5 mg PO DAILY 11/02/12 01/09/17 02/27/14 History FLUoxetine HCL [PROzac] 60 mg PO QAM 11/02/12 01/09/17 02/27/14 History Gabapentin 200 mg PO TID 11/02/12 01/09/17 02/27/14 History levETIRAcetam [Keppra TAB] 1,000 mg PO BID 11/02/12 01/09/17 02/27/14 History Allopurinol [Zyloprim] 300 mg PO QDAY 02/27/14 01/09/17 02/27/14 History Cholecalciferol Vit D3 [Vitamin D3] 1,000 unit PO QDAY 02/27/14 01/09/17 History Ipratropium/Albuterol Sulfate 1 ampul IH Q6HRT PRN 02/27/14 01/09/17 Unknown History [DUONEB *Not for PRN Use*] Mirtazapine [Remeron] 15 mg PO DAILY 02/27/14 01/09/17 02/27/14 History Thiamine HCl [B-1] 200 mg PO DAILY 02/27/14 01/09/17 02/27/14 History Atenolol [Tenormin] 50 mg PO DAILY #30 tablet 07/31/14 01/09/17 Unknown Rx Lipase/Protease/Amylase 1 each PO TID #90 capsule. 07/31/14 01/09/17 Unknown Rx [Pancrelipase 5,000 Unit Cap] Nicotine [Habitrol] 14 mg TD DAILY #14 patch 08/24/15 01/09/17 Unknown Rx Famotidine [Pepcid] 20 mg PO BID #20 tablet 01/10/17 Unknown Rx Folic Acid [Folvite] 1 mg PO DAILY #30 tablet 01/10/17 Unknown Rx ED Physical Exam - General Limitations: Altered Mental Status, Physical Limitation General appearance: in no apparent distress - Head Head exam: Present: atraumatic, normocephalic - Eye Eye exam: Present: normal appearance, PERRL, EOMI, other (visual acuity intact to finger counting, color perception, reading at a close distance). Absent: nystagmus - ENT ENT exam: Present: normal exam, normal orophraynx, mucous membranes moist, normal external ear exam - Neck Neck exam: Present: normal inspection, full ROM. Absent: tenderness, meningismus - Respiratory Respiratory exam: Present: normal lung sounds bilaterally. Absent: respiratory distress - Cardiovascular Cardiovascular Exam: Present: regular rate, normal rhythm, normal heart sounds. Absent: bradycardia, tachycardia, irregular rhythm, systolic murmur, diastolic murmur, rubs, gallop - GI/Abdominal GI/Abdominal exam: Present: soft. Absent: distended, tenderness, guarding, rebound, rigid, pulsatile mass - Rectal Rectal exam: Present: normal inspection (good rectal tone), normal rectal tone, heme (-) stool, other (chaperoned by nurse Brenda Hardwick). Absent: black stool , bloody stool - Extremities Exam Extremities exam: Present: normal inspection, full ROM, normal capillary refill , other (2+ pulses noted in the bilateral upper, lower extremities. Compartments soft. No long bony tenderness. The pelvis is stable.). Absent: tenderness, pedal edema, joint swelling, calf tenderness - Back Exam Back exam: Present: normal inspection, full ROM. Absent: tenderness, CVA tenderness (R), paraspinal tenderness, vertebral tenderness - Neurological Exam Neurological exam: Present: alert (patient alert to name and location. Did not know the year, or month or day of the week), other (2+ pulses noted in the bilateral upper, lower extremities. Compartments soft. No long bony tenderness. The pelvis is stable.). Absent: motor sensory deficit - Psychiatric Psychiatric exam: Present: flat affect - Skin Skin exam: Present: warm, dry, intact, normal color. Absent: rash ED Course Vital Signs 10/29/17 10/29/17 10/29/17 19:54 20:00 20:30 Temperature 97.8 F Pulse Rate 68 68 64 Respiratory 16 14 20 Rate Blood Pressure 77/45 80/46 81/47 O2 Sat by Pulse 96 96 100 Oximetry 10/29/17 21:54 Temperature Pulse Rate 63 Respiratory 11 L Rate Blood Pressure 96/55 O2 Sat by Pulse 97 Oximetry - Reevaluation(s) Reevaluation #1: 10/29/17 21:19 Differential diagnosis, including but not limited to: Pneumonia, urinary tract infection, dehydration, malnutrition, intracranial injury, cervical spine injury Assessment and plan: 67-year-old gentleman with generalized weakness and probable failure to thrive. He is afebrile rectally and has a nonfocal physical and neurologic examination. He is mildly altered, as he does not know the date. Laboratory studies show renal insufficiency which appears to be new when compared to prior. He is initially hypotensive and this improved with aggressive IV fluids. Patient most likely has a component of dehydration, and probable vasomotor nephropathy. X-ray of the chest, pelvis was negative for acute disease. CT scan of the brain, cervical spine, urinalysis pending. Patient will be admitted to the hospital once initial diagnostic have resulted. Reevaluation #2: 10/29/17 22:42 Blood pressure in the 100s. CT scan of brain, cervical spine negative. X-rays negative for acute disease. Patient in no distress. Dr. Mota, the hospital physician, accepted the patient to the medical service. ED Medical Decision Making - Lab Data Result diagrams: 10/29/17 20:15 10/29/17 20:15 Vital Signs 10/29/17 19:54 Temperature 97.8 F Pulse Rate 68 Respiratory 16 Rate Blood Pressure 77/45 O2 Sat by Pulse 96 Oximetry Lab Results 10/29/17 10/29/17 Range/Units 20:15 20:15 WBC 5.5 (4.5-11.0) K/mm3 RBC 3.31 L (3.65-5.03) M/mm3 Hgb 11.2 L (11.8-15.2) gm/dl Hct 32.7 L (35.5-45.6) % MCV 99 H (84-94) fl MCH 34 H (28-32) pg MCHC 34 (32-34) % RDW 14.3 (13.2-15.2) % Plt Count 122 L (140-440) K/mm3 Lymph % (Auto) 30.8 (13.4-35.0) % Woodruff % (Auto) 7.0 (0.0-7.3) % Eos % (Auto) 1.0 (0.0-4.3) % Baso % (Auto) 0.3 (0.0-1.8) % Lymph # 1.7 (1.2-5.4) K/mm3 Woodruff # 0.4 (0.0-0.8) K/mm3 Eos # 0.1 (0.0-0.4) K/mm3 Baso # 0.0 (0.0-0.1) K/mm3 Seg Neutrophils % 60.9 (40.0-70.0) % Seg Neutrophils # 3.3 (1.8-7.7) K/mm3 Sodium 124 L (137-145) mmol/L Potassium 4.1 (3.6-5.0) mmol/L Chloride 85.9 L (98-107) mmol/L Carbon Dioxide 21 L (22-30) mmol/L Anion Gap 21 mmol/L BUN 37 H (9-20) mg/dL Creatinine 2.7 H (0.8-1.5) mg/dL Estimated GFR 29 ml/min BUN/Creatinine Ratio 14 % Glucose 93 (75-100) mg/dL Calcium 8.9 (8.4-10.2) mg/dL Total Bilirubin 0.60 (0.1-1.2) mg/dL AST 28 (5-40) units/L ALT 21 (7-56) units/L Alkaline Phosphatase 85 (35-129) units/L Total Protein 6.5 (6.3-8.2) g/dL Albumin 4.0 (3.9-5) g/dL Albumin/Globulin Ratio 1.6 % - EKG Data -: EKG Interpreted by Me EKG shows normal: sinus rhythm Rate: normal - EKG Data 10/29/17 21:20 Sinus, 61 bpm, normal axis, high left ventricular voltage, QTC prolonged, abnormal EKG, not a STEMI, nonspecific changes compared to prior EKG from 2016. - Medical Decision Making Hyponatremia appreciated, in conjunction with hypotension and acute renal insufficiency, possibly hypovolemic hyponatremia. Critical care attestation.: If time is entered above; I have spent that time in minutes in the direct care of this critically ill patient, excluding procedure time. ED Disposition Clinical Impression: Renal insufficiency, Encephalopathy acute, Hyponatremia syndrome, Alcohol abuse Disposition: DC-09 OP ADMIT IP TO THIS HOSP Is pt being admited?: Yes Condition: Fair Referrals: PRIMARY CARE, [Primary Care Provider] - 3-5 Days
[2017-10-29] MEDS ORDERED: NACL 0.9% 1000 ML 2,000 ML ONE (20:35)
[2017-10-29 20:53] LABS: Basophils % (Auto) 0.3 % (0.0-1.8); Eosinophils # (Auto) 0.1 K/mm3 (0.0-0.4); Hematocrit 32.7 % (35.5-45.6); Hemoglobin 11.2 gm/dl (11.8-15.2); Lymphocytes # (Auto) 1.7 K/mm3 (1.2-5.4); Lymphocytes % (Auto) 30.8 % (13.4-35.0); Mean Corpuscular HGB Conc 34 % (32-34); Mean Corpuscular Hemoglobin 34 pg (28-32); Mean Corpuscular Volume 99 fl (84-94); Monocytes # (Auto) 0.4 K/mm3 (0.0-0.8); Platelet Count 122 K/mm3 (140-440); Red Blood Count 3.31 M/mm3 (3.65-5.03); Red Cell Distribution Width 14.3 % (13.2-15.2)
[2017-10-29 20:57] LABS: Calcium 8.9 mg/dL (8.4-10.2)
[2017-10-29 21:55] LABS: INR 0.95 (0.87-1.13)
[2017-10-29 21:56] LABS: Partial Thromboplastin Time 25.5 Sec. (24.2-36.6)
--- NOTE | 2017-10-29 22:33 | Cat Scan Report ---
FINAL REPORT PROCEDURE: CT head without contrast. TECHNIQUE: Computerized tomography of the head was performed without contrast material. HISTORY: Altered mental status, falls, weakness. COMPARISON: CT head 08/19/2016. FINDINGS: There is motion artifact on several of the images. The ventricles are normal in size. The godoy matter and white matter appear normal. There are no mass lesions. There is no intracranial hemorrhage. The calvarium appears intact. The mastoid air cells are clear as far as visualized. IMPRESSION: Normal study.
--- NOTE | 2017-10-29 22:39 | Cat Scan Report ---
FINAL REPORT PROCEDURE: CT cervical spine without contrast. TECHNIQUE: Computerized tomography of the cervical spine was performed from the skull base to T1 without contrast material. HISTORY: Altered mental status. COMPARISON: No prior studies are available for comparison. FINDINGS: The cervical vertebrae have normal height and alignment. There are no fractures. There is no subluxation. There is moderate disc space narrowing at C4-5. There are vertebral body osteophytes throughout the cervical spine. The spinal canal is adequately patent. The facet joints appear satisfactory. There is moderate osteophytic narrowing of the left neural foramen at C3-4. There is moderate osteophytic narrowing of the right neural foramen at C4-5. The prevertebral soft tissues have normal thickness. IMPRESSION: Degenerative disease as described. No evidence of acute cervical spine injury.
--- NOTE | 2017-10-29 22:40 | XRay Report ---
FINAL REPORT PROCEDURE: Pelvis. TECHNIQUE: AP view. HISTORY: falls weakness COMPARISON: No prior studies are available for comparison. FINDINGS: The bones appear intact without fracture. The sacroiliac joints and symphysis pubis appear normal. There is moderate osteoarthritis involving the right hip joint. There is mild narrowing of the left hip joint. There is some degenerative cyst formation in the right acetabulum. The soft tissues are unremarkable. IMPRESSION: Osteoarthritis involving both hips, right worse than left.
--- NOTE | 2017-10-29 22:43 | XRay Report ---
FINAL REPORT PROCEDURE: Chest. TECHNIQUE: Portable AP view. HISTORY: Weakness, falls, pneumonia. COMPARISON: No prior studies are available for comparison. FINDINGS: The heart and mediastinum appear normal. There is calcification in the thoracic aorta. The lungs are clear and well expanded. There are no pleural effusions. The soft tissues are unremarkable. The regional skeleton appears intact. IMPRESSION: Negative portable chest.
[2017-10-29] MEDS ORDERED: ZOFRAN IV PRN (23:33)
[2017-10-29] MEDS ORDERED: TYLENOL PO PRN (23:33)
[2017-10-29] MEDS ORDERED: SODIUM CHLORIDE FLUSH SYRINGE 10 ML IV PRN (23:33)
[2017-10-29] MEDS ORDERED: PROVENTIL IH PRN (23:33)
--- NOTE | 2017-10-29 23:39 | History and Physical Report ---
History of Present Illness Date of examination: 10/30/17 History of present illness: 67-year-old man with a history of hypertension, COPD, seizure, pancreatitis causing emergency room with complaint of generalized weakness, feeling tired. He sustained a fall several times today, there was no loss of consciousness Review of systems Constitutional: no weight loss, chills, fever Ears, eyes, nose, mouth and throat: no nasal congestion, no nasal discharge, no sinus pressure, no vision change, no red eye. Neck: No neck pain or rigidity. Cardiovascular: no chest pain, palpitations Respiratory: no cough, shortness of breath Gastrointestinal: no abdominal pain hematochezia Genitourinary : no frequency , no hematuria Musculoskeletal: no joint swelling or muscle ache Integumentary: no rash, no pruritis Neurological: no parathesias, no numbness, no focal weakness Endocrine: no cold or heat intolerance, no polyuria or polydipsia Hematologic/Lymphatic: no easy bruising, no easy bleeding, no gland swelling Allergic/Immunologic: no urticaria, no angioedema. PAST MEDICAL HISTORY: hypertension, COPD, seizure, pancreatitis PAST SURGICAL HISTORY: None SOCIAL HISTORY: Drinks 4 beers a day, no drugs, tobacco FAMILY HISTORY: Hypertension Medications and Allergies Allergies Allergy/AdvReac Type Severity Reaction Status Date / Time shellfish derived Allergy Swelling Verified 08/21/15 22:08 lobster Allergy lips swell Uncoded 08/21/13 14:24 Home Medications Medication Instructions Recorded Confirmed Last Taken Type RX: Amlodipine Besylate [Norvasc] 5 mg PO DAILY 11/02/12 01/09/17 02/27/14 History RX: FLUoxetine HCL [PROzac] 60 mg PO QAM 11/02/12 01/09/17 02/27/14 History RX: Gabapentin 200 mg PO TID 11/02/12 01/09/17 02/27/14 History RX: levETIRAcetam [Keppra TAB] 1,000 mg PO BID 11/02/12 01/09/17 02/27/14 History RX: Allopurinol [Zyloprim] 300 mg PO QDAY 02/27/14 01/09/17 02/27/14 History RX: Cholecalciferol Vit D3 1,000 unit PO QDAY 02/27/14 01/09/17 02/27/14 History [Vitamin D3] RX: Ipratropium/Albuterol Sulfate 1 ampul IH Q6HRT PRN 02/27/14 01/09/17 Unknown History [DUONEB *Not for PRN Use*] RX: Mirtazapine [Remeron] 15 mg PO DAILY 02/27/14 01/09/17 02/27/14 History RX: Thiamine HCl [B-1] 200 mg PO DAILY 02/27/14 01/09/17 02/27/14 History RX: Atenolol [Tenormin] 50 mg PO DAILY #30 tablet 07/31/14 01/09/17 Unknown Rx RX: Lipase/Protease/Amylase 1 each PO TID #90 capsule. 07/31/14 01/09/17 Unknown Rx [Pancrelipase 5,000 Unit Cap] RX: Nicotine [Habitrol] 14 mg TD DAILY #14 patch 08/24/15 01/09/17 Unknown Rx RX: Famotidine [Pepcid] 20 mg PO BID #20 tablet 01/10/17 Unknown Rx RX: Folic Acid [Folvite] 1 mg PO DAILY #30 tablet 01/10/17 Unknown Rx Exam - Physical Exam Narrative exam: Gen. appearance: Patient lying in bed, no apparent distress HEENT: Normocephalic, atraumatic, pupils equally round and reactive to light, extraocular movement intact, and no sclericterus,. No JVD or thyromegaly or nodule,neck supple, no carotid bruit ,mucous membranes moist, no exudate or erythema Heart: S1, S2, regular rate and rhythm Lungs: Clear bilaterally, breathing comfortable Abdomen: Positive bowel sounds, non-tender, nondistended, no organomegaly Extremity:no edema cyanosis, clubbing Skin: no rash, dry, warm Neuro: Oriented 3, cranial nerves II-12 intact, speech is fluent, motor and sensory intact - Constitutional Vitals: Temp Pulse Resp BP Pulse Ox 97.8 F 63 11 L 96/55 97 10/29/17 19:54 10/29/17 21:54 10/29/17 21:54 10/29/17 21:54 10/29/17 21:54 Results - Labs CBC & Chem 7: 10/29/17 20:15 10/29/17 20:15 Labs: Abnormal lab results 10/29/17 10/29/1710/29/18 Range/Units 20:15 20:15 20:55 RBC 3.31 L (3.65-5.03) M/mm3 Hgb 11.2 L (11.8-15.2) gm/dl Hct 32.7 L (35.5-45.6) % MCV 99 H (84-94) fl MCH 34 H (28-32) pg Plt Count 122 L (140-440) K/mm3 Sodium 124 L (137-145) mmol/L Chloride 85.9 L (98-107) mmol/L Carbon Dioxide 21 L (22-30) mmol/L BUN 37 H (9-20) mg/dL Creatinine 2.7 H (0.8-1.5) mg/dL Total Creatine Kinase 368 H (55-170) units/L Salicylates (2.8-20.0) mg/dL Acetaminophen (10.0-30.0) ug/mL 10/29/17 10/29/17 Range/Units 20:55 20:55 RBC (3.65-5.03) M/mm3 Hgb (11.8-15.2) gm/dl Hct (35.5-45.6) % MCV (84-94) fl MCH (28-32) pg Plt Count (140-440) K/mm3 Sodium (137-145) mmol/L Chloride (98-107) mmol/L Carbon Dioxide (22-30) mmol/L BUN (9-20) mg/dL Creatinine (0.8-1.5) mg/dL Total Creatine Kinase (55-170) units/L Salicylates < 0.3 L (2.8-20.0) mg/dL Acetaminophen < 5.0 L (10.0-30.0) ug/mL - Imaging and Cardiology Chest x-ray: report reviewed CT Scan - head: report reviewed Assessment and Plan CT cervical spine reviewed Assessment Acute renal failure Hyponatremia Generalized weakness secondary to hyponatremia, acute renal failure Hypertension COPD Seizure History of pancreatitis Thrombocytopenia Plan Admit to medicine Start gentle IV fluid, follow sodium level, consult renal Check ultrasound of the kidneys, start nebulized treatment Continue appropriate outpatient medications DVT prophylaxis
[2017-10-29] MEDS ORDERED: NACL 0.9% 1000 ML 1,000 ML IV SCH (23:45)
--- NOTE | 2017-10-30 00:54 | History and Physical Report ---
History of Present Illness Date of examination: 10/29/17 Date of admission: 10/29/17 23:33 History of present illness: 67-year-old man with a history of hypertension, diabetes, hyperlipidemia, CVA with right-sided weakness comes to the emergency room for Review of systems Constitutional: no weight loss, chills Ears, eyes, nose, mouth and throat: no nasal congestion, no nasal discharge, no sinus pressure, no vision change, no red eye. Neck: No neck pain or rigidity. Cardiovascular: no chest pain, palpitations Respiratory: No cough, shortness of breath Gastrointestinal: no abdominal pain, hematochezia Genitourinary : no dysuria, frequency , no hematuria Musculoskeletal: no joint swelling or muscle ache Integumentary: no rash, no pruritis Neurological: no parathesias, no numbness, no focal weakness Endocrine: no cold or heat intolerance, no polyuria or polydipsia Hematologic/Lymphatic: no easy bruising, no easy bleeding, no gland swelling Allergic/Immunologic: no urticaria, no angioedema. PAST MEDICAL HISTORY:hypertension, diabetes, hyperlipidemia, CVA with right- sided weakness, PAST SURGICAL HISTORY: 3, hysterectomy SOCIAL HISTORY: Quit smoking, and all quadrant FAMILY HISTORY: Hypertension Medications and Allergies Allergies Allergy/AdvReac Type Severity Reaction Status Date / Time shellfish derived Allergy Swelling Verified 08/21/15 22:08 lobster Allergy lips swell Uncoded 08/21/13 14:24 Home Medications Medication Instructions Recorded Confirmed Last Taken Type Amlodipine Besylate [Norvasc] 5 mg PO DAILY 11/02/12 01/09/17 02/27/14 History FLUoxetine HCL [PROzac] 60 mg PO QAM 11/02/12 01/09/17 02/27/14 History Gabapentin 200 mg PO TID 11/02/12 01/09/17 02/27/14 History levETIRAcetam [Keppra TAB] 1,000 mg PO BID 11/02/12 01/09/17 02/27/14 History Allopurinol [Zyloprim] 300 mg PO QDAY 02/27/14 01/09/17 02/27/14 History Cholecalciferol Vit D3 [Vitamin D3] 1,000 unit PO QDAY 02/27/14 01/09/17 History Ipratropium/Albuterol Sulfate 1 ampul IH Q6HRT PRN 02/27/14 01/09/17 Unknown History [DUONEB *Not for PRN Use*] Mirtazapine [Remeron] 15 mg PO DAILY 02/27/14 01/09/17 02/27/14 History Thiamine HCl [B-1] 200 mg PO DAILY 02/27/14 01/09/17 02/27/14 History Atenolol [Tenormin] 50 mg PO DAILY #30 tablet 07/31/14 01/09/17 Unknown Rx Lipase/Protease/Amylase 1 each PO TID #90 capsule. 07/31/14 01/09/17 Unknown Rx [Pancrelipase 5,000 Unit Cap] Nicotine [Habitrol] 14 mg TD DAILY #14 patch 08/24/15 01/09/17 Unknown Rx Famotidine [Pepcid] 20 mg PO BID #20 tablet 01/10/17 Unknown Rx Folic Acid [Folvite] 1 mg PO DAILY #30 tablet 01/10/17 Unknown Rx Active Meds: Active Medications Acetaminophen (Tylenol) 650 mg PO Q4H PRN PRN Reason: Pain MILD(1-3)/Fever >100.5/CRYSTAL Albuterol (Proventil) 2.5 mg IH Q3HRT PRN PRN Reason: Shortness Of Breath Enoxaparin Sodium (Lovenox) 30 mg SUB-Q QDAY JAYLIN Sodium Chloride (Nacl 0.9% 1000 Ml) 1,000 mls @ 100 mls/hr IV DIRECT JAYLIN Ondansetron HCl (Zofran) 4 mg IV Q8H PRN PRN Reason: Nausea And Vomiting Sodium Chloride (Sodium Chloride Flush Syringe 10 Ml) 10 ml IV BID JAYLIN Sodium Chloride (Sodium Chloride Flush Syringe 10 Ml) 10 ml IV PRN PRN PRN Reason: LINE FLUSH Exam - Constitutional Vitals: Temp Pulse Resp BP Pulse Ox 97.8 F 65 13 91/55 97 10/29/17 19:54 10/30/17 00:00 10/30/17 00:00 10/30/17 00:00 10/30/17 00:00 Results - Labs CBC & Chem 7: 10/29/17 20:15 10/29/17 20:15 Labs: Abnormal lab results 10/29/17 10/29/1718 Range/Units 20:15 20:15 20:55 RBC 3.31 L (3.65-5.03) M/mm3 Hgb 11.2 L (11.8-15.2) gm/dl Hct 32.7 L (35.5-45.6) % MCV 99 H (84-94) fl MCH 34 H (28-32) pg Plt Count 122 L (140-440) K/mm3 Sodium 124 L (137-145) mmol/L Chloride 85.9 L (98-107) mmol/L Carbon Dioxide 21 L (22-30) mmol/L BUN 37 H (9-20) mg/dL Creatinine 2.7 H (0.8-1.5) mg/dL Total Creatine Kinase 368 H (55-170) units/L Salicylates (2.8-20.0) mg/dL Acetaminophen (10.0-30.0) ug/mL 10/29/17 10/29/17 Range/Units 20:55 20:55 RBC (3.65-5.03) M/mm3 Hgb (11.8-15.2) gm/dl Hct (35.5-45.6) % MCV (84-94) fl MCH (28-32) pg Plt Count (140-440) K/mm3 Sodium (137-145) mmol/L Chloride (98-107) mmol/L Carbon Dioxide (22-30) mmol/L BUN (9-20) mg/dL Creatinine (0.8-1.5) mg/dL Total Creatine Kinase (55-170) units/L Salicylates < 0.3 L (2.8-20.0) mg/dL Acetaminophen < 5.0 L (10.0-30.0) ug/mL
--- NOTE | 2017-10-30 02:16 | Ultrasound Report ---
FINAL REPORT EXAM: US Renal CLINICAL INDICATIONS: ARF FINDINGS: Real-time ultrasound of the kidneys was performed. The right kidney measures 11.3 x 4.9 x 1.5 cm. Cortical thickness is normal at 1.5 cm. There is a right upper pole renal cyst, 1.1 x 0.7 x 2.1 cm and a right lower pole renal cyst 1.2 x 0.4 x 0.9 cm The left kidney measures 11.0 x 4.6 x 4.5 cm. Cortical thickness is 1.9 cm which is within normal limits. There is an upper pole cyst 1.1 x 1.2 x 1.1 cm and a lower pole cyst 1.3 x 1.0 x 1.0 cm. No hydronephrosis is seen in the kidney. The urinary bladder is distended and appears unremarkable. IMPRESSION: THE KIDNEYS BILATERAL APPEAR NORMAL IN SIZE AND CORTICAL THICKNESS BILATERAL RENAL CYSTS
[2017-10-30] MEDS ORDERED: DUONEB *Not for PRN Use IH (05:11)
[2017-10-30 06:26] LABS: Basophils % (Auto) 0.4 % (0.0-1.8); Eosinophils % (Auto) 0.9 % (0.0-4.3); Hematocrit 31.6 % (35.5-45.6); Hemoglobin 10.7 gm/dl (11.8-15.2); Lymphocytes # (Auto) 1.9 K/mm3 (1.2-5.4); Lymphocytes % (Auto) 36.4 % (13.4-35.0); Mean Corpuscular HGB Conc 34 % (32-34); Mean Corpuscular Hemoglobin 34 pg (28-32); Mean Corpuscular Volume 99 fl (84-94); Monocytes # (Auto) 0.4 K/mm3 (0.0-0.8); Platelet Count 102 K/mm3 (140-440); Red Blood Count 3.19 M/mm3 (3.65-5.03); Red Cell Distribution Width 14.1 % (13.2-15.2)
[2017-10-30 07:16] LABS: Calcium 8.6 mg/dL (8.4-10.2)
[2017-10-30] MEDS ORDERED: PROTEASE PO SCH (08:00)
[2017-10-30] MEDS ORDERED: LIPASE PO SCH (08:00)
[2017-10-30] MEDS ORDERED: AMYLASE PO SCH (08:00)
--- NOTE | 2017-10-30 09:07 | Consultation ---
History of Present Illness - History of Present Illness Thank you for the consultation Patient is 59-year-old male who has been admitted here with generalized weakness and fatigue and does have prior history of multiple comorbidities including hypertension COPD seizure disorder alcohol abuse pancreatitis He has been admitted here with symptoms off generalized fatigue frequent falls and failure to thrive-like picture. During this admission his BUN is 37 creatinine is 2.7 with sodium of 124 hemoglobin 11.2 and platelet count of 122,000, x-ray is negative CT of the brain and cervical spine wasn't reported to be negative as well. Patient was also noted to be markedly hypotensive with systolic blood pressure running in the low 70s Review of the old records show that in January 2017 his creatinine was 0.9 and in August 2016 was 2.8 suggestive of acute renal failure spells. Patient's creatinine was 2.4 in March 2014 as well Current ultrasonogram obtained as of yesterday shows preserved cortical thickness patient has bilateral cyst Past medical history significant for Acute kidney injury Renal cyst COPD Seizure Pancreatitis Alcohol abuse Current allergies: Shellfish lobster Home medication present medication: Reviewed Social history ration is been drinking 4 beers a day no history of any other form of drug abuse including tobacco or recreational drug Family history positive for hypertension Review of systems Limited due to encephalopathy Physical examination Vitals: Reviewed from this admission Gen.: No acute distress HEENT: Normocephalic/atraumatic skull oral mucosa appears to be very dry nimal pallor no icterus or uremic order Neck: Supple without any thyromegaly nodular mass or JVD Chest: Clear to auscultation anteriorly few faint basilar crackles otherwise unremarkable Heart: Regular rate and rhythm S1 and S2 heard no S3-S4 no pericardial rub Abdomen: Soft nontender no guarding rigidity rebound organomegaly no suprapubic masses, no CVA tenderness no renal bruit Back: No CVA tenderness Derm: No petechial rashes dry skin Extremity: Pulses palpable no peripheral cyanosis, 1+ edema dry skin Neurological: Alert awake follows commands Psychiatric: No agitation and aggression Labs and x-rays: Were reviewed from this admission Assessment and plan; Acute kidney injury likely patient does have a competent of acute tubular necrosis given that he was severely hypotensive volume depleted and does have history of underlying COPD, given the history of frequent falls will need to rule out any possibility of rhabdomyolysis as well With no indication for renal placement therapy further workup is required ultrasonogram was also reviewed Ultrasonogram shows evidence of bilateral renal cysts He also appears to be moderately severely dehydrated and would benefit from IV hydration Metabolic acidosis: Currently better Anemia with hemoglobin of 10.7 in a patient who has history of chronic alcohol abuse, platelet count is around 102,000 Patient does have history of acute kidney injury on multiple episodes in the past historically ever since 2014 Hyponatremia: In the setting of chronic alcohol abuse this is concerning and should be corrected at a slow pace between 6-8 mEq per day ideally will also order workup for hyponatremia, including thyroid cortisol osmolality uric acid etc. Currently is improving somewhat faster and would like to give more free water His renal prognosis appears to be guarded to poor at this time Had a detailed discussion with patient about the plan of care from renal standpoint. All questions were answered labs and pertinent imaging findings were explained to the patient and simple Cambodian. Advised patient to make an appointment for follow-up within a week of the discharge, for proper renal care We'll continue to follow and make recommendation from renal standpoint Thank you for the consultation. Medications and Allergies Allergies Allergy/AdvReac Type Severity Reaction Status Date / Time shellfish derived Allergy Swelling Verified 08/21/15 22:08 lobster Allergy lips swell Uncoded 08/21/13 14:24 Home Medications Medication Instructions Recorded Confirmed Last Taken Type Amlodipine Besylate [Norvasc] 5 mg PO DAILY 11/02/12 10/30/17 02/27/14 History FLUoxetine HCL [PROzac] 60 mg PO QAM 11/02/12 10/30/17 02/27/14 History Gabapentin 200 mg PO TID 11/02/12 10/30/17 02/27/14 History levETIRAcetam [Keppra TAB] 1,000 mg PO BID 11/02/12 10/30/17 02/27/14 History Allopurinol [Zyloprim] 300 mg PO QDAY 02/27/14 10/30/17 02/27/14 History Cholecalciferol Vit D3 [Vitamin D3] 1,000 unit PO QDAY 02/27/14 10/30/17 History Ipratropium/Albuterol Sulfate 1 ampul IH Q6HRT PRN 02/27/14 10/30/17 Unknown History [DUONEB *Not for PRN Use*] Mirtazapine [Remeron] 15 mg PO DAILY 02/27/14 10/30/17 02/27/14 History Thiamine HCl [B-1] 200 mg PO DAILY 02/27/14 10/30/17 02/27/14 History Atenolol [Tenormin] 50 mg PO DAILY #30 tablet 07/31/14 10/30/17 Unknown Rx Nicotine [Habitrol] 14 mg TD DAILY #14 patch 08/24/15 10/30/17 Unknown Rx Famotidine [Pepcid] 20 mg PO BID #20 tablet 01/10/17 10/30/17 Unknown Rx Folic Acid [Folvite] 1 mg PO DAILY #30 tablet 01/10/17 10/30/17 Unknown Rx Active Meds: Active Medications Acetaminophen (Tylenol) 650 mg PO Q4H PRN PRN Reason: Pain MILD(1-3)/Fever >100.5/CRYSTAL Albuterol (Proventil) 2.5 mg IH Q3HRT PRN PRN Reason: Shortness Of Breath Allopurinol (Zyloprim) 150 mg PO QDAY JAYLIN Amlodipine Besylate (Norvasc) 5 mg PO DAILY JAYLIN Atenolol (Tenormin) 50 mg PO DAILY JAYLIN Cholecalciferol (Vitamin D3) 1,000 unit PO QDAY JAYLIN Famotidine (Pepcid) 10 mg PO BID JAYLIN Fluoxetine HCl (Prozac) 60 mg PO QAM JAYLIN Folic Acid (Folvite) 1 mg PO DAILY JAYLIN Gabapentin (Neurontin) 200 mg PO TID [facility] Sodium Chloride (Nacl 0.9% 1000 Ml) 1,000 mls @ 100 mls/hr IV DIRECT JAYLIN Levetiracetam (Keppra) 1,000 mg PO BID JAYLIN Mirtazapine (Remeron) 15 mg PO DAILY [facility] Miscellaneous Medication (Lipase/Protease/Amylase [Pancrelipase Dr 5,000 Unit Cap]) 1 each PO TID JAYLIN Ondansetron HCl (Zofran) 4 mg IV Q8H PRN PRN Reason: Nausea And Vomiting Pneumococcal Polyvalent Vaccine (Pneumovax 23) 0.5 ml IM .ONCE ONE Stop: 10/30/17 12:01 Sodium Chloride (Sodium Chloride Flush Syringe 10 Ml) 10 ml IV BID JAYLIN Sodium Chloride (Sodium Chloride Flush Syringe 10 Ml) 10 ml IV PRN PRN PRN Reason: LINE FLUSH Thiamine HCl (Vitamin B-1) 200 mg PO DAILY JAYLIN Exam - Vital Signs Vital signs: Vital Signs Temp Pulse Resp BP Pulse Ox 97.8 F 68 16 77/45 96 10/29/17 19:54 10/29/17 19:54 10/29/17 19:54 10/29/17 19:54 10/29/17 19:54 Results - Lab Results 10/30/17 05:31 10/30/17 05:31 Most recent lab results Calcium 8.6 mg/dL (8.4-10.2) 10/30/17 05:31
[2017-10-30] MEDS ORDERED: LOVENOX SUB-Q SCH (10:00)
[2017-10-30] MEDS ORDERED: FLUOXETINE HCL 60 MG PO SCH (10:00)
[2017-10-30] MEDS ORDERED: PEPCID PO SCH (10:00)
[2017-10-30] MEDS ORDERED: NON-FORMULARY (Amlodipine Besylate [Norvasc] 5 MG) PO SCH (10:00)
[2017-10-30] MEDS ORDERED: ZYLOPRIM PO SCH (10:00)
[2017-10-30] MEDS: VITAMIN B-1 PO SCH (10:40)
[2017-10-30] MEDS: NEURONTIN PO SCH ×3 (10:41→21:36)
[2017-10-30] MEDS: PROzac PO SCH (10:41)
[2017-10-30] MEDS: NORVASC PO SCH (10:41)
[2017-10-30] MEDS: KEPPRA PO SCH ×2 (10:41→21:36)
[2017-10-30] MEDS: REMERON PO SCH (10:41)
[2017-10-30] MEDS: VITAMIN D3 PO SCH (10:41)
[2017-10-30] MEDS: FOLVITE PO SCH (10:42)
[2017-10-30] MEDS: ZYLOPRIM PO SCH (10:42)
[2017-10-30] MEDS: PEPCID PO SCH ×2 (10:42→21:36)
[2017-10-30] MEDS: SODIUM CHLORIDE FLUSH SYRINGE 10 ML IV SCH ×2 (10:43→21:37)
[2017-10-30] MEDS: TENORMIN PO SCH (11:26)
[2017-10-30] MEDS ORDERED: PNEUMOVAX 23 IM ONE (12:00)
--- NOTE | 2017-10-30 14:19 | Progress Note ---
Assessment and Plan Acute renal failure - likely vasomotor nephropathy/ATN from volume depletion - cont iv fluid, monitor renal function - renal us showed no sogn of medical disease - nephrology following Hyponatremia - likely from dehydration and alcohol abuse - monitor BMP Generalized weakness secondary to hyponatremia, acute renal failure - supportive care Hypotension, resolved with fluid Hypertension, cont to monitor - started on Norvasc COPD, nebs as needed Seizure, conr home meds History of pancreatitis, monitor LFT and lipase Thrombocytopenia, likely from alcohol abuse H/o alcohol abuse, monitor for withdrawl - cont folate, thiamin DVT prophylaxis, Subjective Date of service: 11/06/17 Interval history: Pt seen and examined No acute o/n tolerating diet but poor intake no chest pain drinks 3-4 can beers daily Objective - Constitutional Vitals: Vital Signs - 12hr 10/30/17 10/30/17 10/30/17 02:20 04:30 08:28 Temperature 98.0 F 97.8 F Pulse Rate 67 63 Pulse Rate [ 68 Apical] Respiratory 18 18 18 Rate Blood Pressure Blood Pressure 123/70 139/77 [Left] O2 Sat by Pulse 95 98 98 Oximetry 10/30/17 11:36 Temperature 98.1 F Pulse Rate 63 Pulse Rate [ Apical] Respiratory 19 Rate Blood Pressure 126/68 Blood Pressure [Left] O2 Sat by Pulse 98 Oximetry General appearance: Present: no acute distress - EENT Eyes: PERRL, EOM intact ENT: hearing intact, clear oral mucosa Ears: bilateral: normal - Neck Neck: supple, normal ROM - Respiratory Respiratory effort: normal Respiratory: bilateral: CTA - Cardiovascular Rhythm: regular Heart Sounds: Present: S1 & S2. Absent: gallop, rub Extremities: pulses intact, No edema, normal color, Full ROM - Gastrointestinal General gastrointestinal: Present: soft, non-tender, non-distended, normal bowel sounds - Integumentary Integumentary: clear, warm, dry - Musculoskeletal Musculoskeletal: 1, strength equal bilaterally - Neurologic Neurologic: moves all extremities - Psychiatric Psychiatric: memory intact, appropriate mood/affect, intact judgment & insight - Labs CBC & Chem 7: 10/30/17 05:31 10/31/17 05:13 Labs: Abnormal lab results 10/29/17 10/29/17 10/29/17 Range/Units 20:15 20:15 20:55 RBC 3.31 L (3.65-5.03) M/mm3 Hgb 11.2 L (11.8-15.2) gm/dl Hct 32.7 L (35.5-45.6) % MCV 99 H (84-94) fl MCH 34 H (28-32) pg Plt Count 122 L (140-440) K/mm3 Lymph % (Auto) (13.4-35.0) % [place] % (Auto) (0.0-7.3) % Sodium 124 L (137-145) mmol/L Chloride 85.9 L (98-107) mmol/L Carbon Dioxide 21 L (22-30) mmol/L BUN 37 H (9-20) mg/dL Creatinine 2.7 H (0.8-1.5) mg/dL Glucose (75-100) mg/dL Total Creatine Kinase 368 H (55-170) units/L Salicylates (2.8-20.0) mg/dL Acetaminophen (10.0-30.0) ug/mL 10/29/17 10/29/17 10/30/17 Range/Units 20:55 20:55 05:31 RBC 3.19 L (3.65-5.03) M/mm3 Hgb 10.7 L (11.8-15.2) gm/dl Hct 31.6 L (35.5-45.6) % MCV 99 H (84-94) fl MCH 34 H (28-32) pg Plt Count 102 L (140-440) K/mm3 Lymph % (Auto) 36.4 H (13.4-35.0) % [place] % (Auto) 8.0 H (0.0-7.3) % Sodium (137-145) mmol/L Chloride (98-107) mmol/L Carbon Dioxide (22-30) mmol/L BUN (9-20) mg/dL Creatinine (0.8-1.5) mg/dL Glucose (75-100) mg/dL Total Creatine Kinase (55-170) units/L Salicylates < 0.3 L (2.8-20.0) mg/dL Acetaminophen < 5.0 L (10.0-30.0) ug/mL 10/30/17 Range/Units 05:31 RBC (3.65-5.03) M/mm3 Hgb (11.8-15.2) gm/dl Hct (35.5-45.6) % MCV (84-94) fl MCH (28-32) pg Plt Count (140-440) K/mm3 Lymph % (Auto) (13.4-35.0) % [place] % (Auto) (0.0-7.3) % Sodium 132 L D (137-145) mmol/L Chloride 95.3 L (98-107) mmol/L Carbon Dioxide (22-30) mmol/L BUN 32 H (9-20) mg/dL Creatinine 1.8 H (0.8-1.5) mg/dL Glucose 70 L (75-100) mg/dL Total Creatine Kinase (55-170) units/L Salicylates (2.8-20.0) mg/dL Acetaminophen (10.0-30.0) ug/mL
[2017-10-31 06:58] LABS: BUN/Creatinine Ratio 19; Blood Urea Nitrogen 23 mg/dL (9-20); Calcium 8.9 mg/dL (8.4-10.2); Hemolysis Index 24
[2017-10-31] MEDS: VITAMIN B-1 PO SCH (09:24)
[2017-10-31] MEDS: KEPPRA PO SCH (09:24)
[2017-10-31] MEDS: PROzac PO SCH (09:25)
[2017-10-31] MEDS: ZYLOPRIM PO SCH (09:27)
[2017-10-31] MEDS: NEURONTIN PO SCH (09:27)
[2017-10-31] MEDS: FOLVITE PO SCH (09:28)
[2017-10-31] MEDS: NORVASC PO SCH (09:29)
[2017-10-31] MEDS: TENORMIN PO SCH (09:30)
[2017-10-31] MEDS: PEPCID PO SCH (09:31)
[2017-10-31] MEDS: REMERON PO SCH (09:31)
[2017-10-31] MEDS: SODIUM CHLORIDE FLUSH SYRINGE 10 ML IV SCH (09:31)
[2017-10-31] MEDS: VITAMIN D3 PO SCH (09:32)
[2017-10-31] MEDS ORDERED: HABITROL TD SCH (10:00)
--- NOTE | 2017-10-31 11:18 | Progress Note ---
Objective - Vital Signs Vital signs: Vital Signs - 12hr 10/31/17 10/31/17 10/31/17 00:30 04:49 08:55 Temperature 98.5 F 98.7 F 98.5 F Pulse Rate 67 67 65 Respiratory 18 18 18 Rate Blood Pressure 133/73 137/76 134/79 O2 Sat by Pulse 99 99 98 Oximetry 10/31/17 10/31/17 09:29 09:30 Temperature Pulse Rate 65 65 Respiratory Rate Blood Pressure 134/79 134/79 O2 Sat by Pulse Oximetry - Lab 10/30/17 05:31 10/31/17 05:13 Most recent lab results Calcium 8.9 mg/dL (8.4-10.2) 10/31/17 05:13
[2017-10-31 15:43] VITALS: BP 114/70
--- NOTE | 2017-10-31 15:50 | Discharge Summary ---
Providers - Providers Date of Admission: 10/29/17 23:33 Date of discharge: 10/31/17 Attending physician: CONNOR ROBISON 10/29/17 23:33 Consult to Physician [CONS] Routine Comment: DR SHANIQUE HOLDER WROTE REPORT Consulting Provider: SCOTT FORD Physician Instructions: Reason For Exam: arf Primary care physician: [facility] Hospitalization Condition: Fair Hospital course: Discharge diagnosis: Acute renal failure - likely vasomotor nephropathy/ATN from volume depletion - cont iv fluid, monitor renal function - renal us showed no sogn of medical disease - nephrology following Hyponatremia - likely from dehydration and alcohol abuse - monitor BMP Generalized weakness secondary to hyponatremia, acute renal failure - supportive care Hypotension, resolved with fluid Hypertension, cont to monitor - started on Norvasc COPD, nebs as needed Seizure, conr home meds History of pancreatitis, monitor LFT and lipase Thrombocytopenia, likely from alcohol abuse H/o alcohol abuse, monitor for withdrawal - cont folate, thiamin DVT prophylaxis, Disposition: DC- TO HOME OR SELFCARE Time spent for discharge: 34 minutes Core Measure Documentation - Palliative Care Palliative Care/ Comfort Measures: Not Applicable - Core Measures Any of the following diagnoses?: none Exam - Constitutional Vitals: Temp Pulse Resp BP Pulse Ox 97.5 F L 68 18 114/70 100 10/31/17 15:38 10/31/17 15:38 10/31/17 15:38 10/31/17 15:38 10/31/17 15:38 General appearance: Present: no acute distress - EENT Eyes: Present: PERRL ENT: hearing intact, clear oral mucosa - Neck Neck: Present: supple, normal ROM - Respiratory Respiratory effort: normal Respiratory: bilateral: CTA - Cardiovascular Heart Sounds: Present: S1 & S2. Absent: rub, click - Extremities Extremities: pulses symmetrical, No edema Peripheral Pulses: within normal limits - Abdominal General gastrointestinal: Present: soft, non-tender, non-distended, normal bowel sounds - Integumentary Integumentary: Present: clear, warm, dry - Musculoskeletal Musculoskeletal: gait normal, strength equal bilaterally - Psychiatric Psychiatric: appropriate mood/affect, intact judgment & insight - Neurologic Neurologic: CNII-XII intact, moves all extremities Plan Activity: advance as tolerated, fall precautions Weight Bearing Status: Weight Bear as Tolerated Diet: regular Follow up with: PRIMARY CARE, [Primary Care Provider] - 3-5 Days
== END 2017-10-31 16:30 | disposition home or self-care (01) | DRG 682 ==
LOC: ED 19:37 → 4A 23:33
PROVIDERS: ADMIT Internal Medicine; ATTEND Internal Medicine
PROC: 3E0234Z Introduction of Serum, Toxoid and Vaccine into Muscle, Percutaneous Approach (ICD-10-PCS; principal; 2017-10-30)
DX: N17.0 Acute kidney failure with tubular necrosis (principal); G93.40 Encephalopathy, unspecified; E87.1 Hypo-osmolality and hyponatremia; E87.2 Acidosis; I10 Essential (primary) hypertension; J44.9 Chronic obstructive pulmonary disease, unspecified; D69.6 Thrombocytopenia, unspecified; G40.909 Epilepsy, unspecified, not intractable, without status epilepticus; F10.10 Alcohol abuse, uncomplicated; F17.210 Nicotine dependence, cigarettes, uncomplicated; Y90.0 Blood alcohol level of less than 20 mg/100 ml; D50.9 Iron deficiency anemia, unspecified; E86.0 Dehydration; I95.9 Hypotension, unspecified; Z82.49 Family history of ischemic heart disease and other diseases of the circulatory system; Z88.8 Allergy status to other drugs, medicaments and biological substances; Z91.013 Allergy to seafood; Z23 Encounter for immunization; Z71.6 Tobacco abuse counseling
CPT/HCPCS: 36415; 70450; 71045; 72125; 72170; 76770; 80048; 80053; 80320; 82140; 82550; 84439; 84443; 84484; 85025; 85610; 85730; 86850; 86900; 86901; 87116; 90732; 93005; 93010; 99285; 99406; G0480; J7030